=== PATIENT | female | born 1930 | race Asian ===

== ENCOUNTER 2017-04-04 23:22 | Inpatient (IN) | payer MEDICAID, MEDICARE ==
[~2017-04-04] VITALS: Ht 154.9 cm; Wt 56.7 kg
[2017-04-04 23:45] VITALS: BP 98/54
[2017-04-05 00:48] LABS: BASOPHILS % (AUTO) 0.5 % (0.0-2.0); EOSINOPHILS % (AUTO) 1.8 % (0.0-3.0); HEMATOCRIT 30.8 % (37.0-47.0); HEMOGLOBIN 10.5 G/DL (12.0-16.0); LYMPHOCYTES % (AUTO) 15.2 % (20.0-45.0); MEAN CORPUSCULAR VOLUME 96 FL (80-99); MONOCYTES % (AUTO) 14.5 % (1.0-10.0); NEUTROPHILS % (AUTO) 67.9 % (45.0-75.0); PLATELET COUNT 239 K/UL (150-450); RED BLOOD COUNT 3.21 M/UL (4.20-5.40); RED CELL DISTRIBUTION WIDTH 11.2 % (11.6-14.8); WHITE BLOOD COUNT 7.6 K/UL (4.8-10.8)
--- NOTE | 2017-04-05 01:07 | Emergency Room Report ---
History of Present Illness General Chief Complaint: Altered Level of Consciousness Source: Patient Present Illness HPI 86-year-old female, history of hypertension, chronic back pain for many years, presenting with overdose. Family states that she was recently discharged from the hospital for one week, had a lumbar fracture, stated that she states that her pain has been terrible and she took 20 pills of her Temazepam Family found her altered, sleepy Prior to this patient has still been able to ambulate on her own despite pain No other history able to be obtained Allergies: Coded Allergies: No Known Allergies (Unverified , 04/04/17) Patient History Past Medical History: see triage record Past Surgical History: none Pertinent Family History: none Last Menstrual Period: none Now: No Reviewed Nursing Documentation: PMH: Agreed, PSxH: Agreed Nursing Documentation-PMH Hx Hypertension: Yes Review of Systems All Other Systems: negative except mentioned in HPI Physical Exam Vital Signs Date Time Temp Pulse Resp B/P (MAP) Pulse Ox O2 Delivery O2 Flow Rate FiO2 04/04/17 23:05 98.1 110 18 98/54 98 Room Air Sp02 EP Interpretation: reviewed, normal General Appearance: other - Very fragile elderly woman, lethargic, however arousable and moans to pain Head: normocephalic, atraumatic Eyes: bilateral eye normal inspection, bilateral eye PERRL, bilateral eye EOMI ENT: normal ENT inspection, normal pharynx, normal voice, moist mucus membranes Neck: normal inspection, full range of motion, supple Respiratory: normal inspection, lungs clear, normal breath sounds, no respiratory distress, no retraction, no wheezing, speaking full sentences, chest symmetrical Cardiovascular #1: normal inspection, regular rate, rhythm, no edema, normal capillary refill Cardiovascular #2: 2+ radial (R), 2+ radial (L) Gastrointestinal: normal inspection, non tender, soft, non-distended, no guarding Musculoskeletal: other - full passive ROM Neurologic: other - moans to pain, otherwise not responsive Skin: normal inspection, normal color, no rash, warm/dry, well hydrated, normal turgor Medical Decision Making Diagnostic Impression: Primary Impression: Altered level of consciousness Additional Impressions: Benzodiazepine overdose Hypokalemia Hypocalcemia ER Course 78-year-old female, altered mental status, likely secondary to overdose of temazepam DDX: Overdose of temazepam Rule out other disturbances such as hypovolemia, dehydration, likely disturbance , cardiac, infectious Intracranial disease Plan: Obtain labs, ua, EKG, CXR CT head ER course: Patient has been monitored during ED stay, HD stable urine with numerous WBCs and few bacteria - tx for UTI supplemented potassium and calcium continues to be sleepy, however vital signs stable Disposition: Patient is to be admitted to telemetry D/W hospitalist Dr Hernandez Please note that this Emergency Department Report was dictated using [employer] representative technology software, occasionally this can lead to erroneous entry secondary to interpretation by the dictation equipment. EKG Diagnostic Results EP Interpretation: Yes Rate: normal Rhythm: NSR ST Segments: rbbb, PACS ASA given to patient: No Rhythm Strip EP Interpretation: Yes Rate: 81 Rhythm: NSR, no PVCs, no ectopy Chest X-ray CXR: Ordered: Yes 1 view Indication: AMS EP interpretation: Yes Interpretation: No consolidation, no effusion, no PTX, no acute cardiopulmonary disease Impression: No acute disease Electronically signed by Cait Harris MD Laboratory Tests Test 04/05/17 00:10 04/05/17 01:13 White Blood Count 7.6 K/UL (4.8-10.8) Red Blood Count 3.21 M/UL (4.20-5.40) L Hemoglobin 10.5 G/DL (12.0-16.0) L Hematocrit 30.8 % (37.0-47.0) L Mean Corpuscular Volume 96 FL (80-99) Mean Corpuscular Hemoglobin 32.8 PG (27.0-31.0) H Mean Corpuscular Hemoglobin Concent 34.2 G/DL (32.0-36.0) Red Cell Distribution Width 11.2 % (11.6-14.8) L Platelet Count 239 K/UL (150-450) Mean Platelet Volume 6.3 FL (6.5-10.1) L Neutrophils (%) (Auto) 67.9 % (45.0-75.0) Lymphocytes (%) (Auto) 15.2 % (20.0-45.0) L Monocytes (%) (Auto) 14.5 % (1.0-10.0) H Eosinophils (%) (Auto) 1.8 % (0.0-3.0) Basophils (%) (Auto) 0.5 % (0.0-2.0) Sodium Level 140 MMOL/L (136-145) Potassium Level 2.9 MMOL/L (3.5-5.1) L Chloride Level 108 MMOL/L (98-107) H Carbon Dioxide Level 26 MMOL/L (21-32) Anion Gap 6 mmol/L (5-15) Blood Urea Nitrogen 15 mg/dL (7-18) Creatinine 0.6 MG/DL (0.55-1.30) Estimate Glomerular Filtration Rate mL/min (>60) Glucose Level 92 MG/DL (74-106) Lactic Acid Level 1.00 mmol/L (0.66-2.22) Calcium Level 5.8 MG/DL (8.5-10.1) *L Total Bilirubin 0.4 MG/DL (0.2-1.0) Aspartate Amino Transferase (AST) 14 U/L (15-37) L Alanine Aminotransferase (ALT) 15 U/L (12-78) Alkaline Phosphatase 48 U/L (46-116) Total Creatine Kinase 20 U/L (26-308) L Troponin I 0.026 ng/mL (0.000-0.056) Pro-B-Type Natriuretic Peptide 126 pg/mL (0-125) H Total Protein 4.8 G/DL (6.4-8.2) L Albumin 2.2 G/DL (3.4-5.0) L Globulin 2.6 g/dL Albumin/Globulin Ratio 0.8 (1.0-2.7) L Salicylates Level < 0.2 ug/mL (2.8-20) L Acetaminophen Level 6 MCG/ML (10-30) L Serum Alcohol < 3 mg/dL Urine Color Pale yellow Urine Appearance Slightly cloudy Urine pH 7 (4.5-8.0) Urine Specific [place]ro 1.010 (1.005-1.035) Urine Protein Negative (NEGATIVE) Urine Glucose (UA) 1+ (NEGATIVE) H Urine Ketones Negative (NEGATIVE) Urine Occult Blood 1+ (NEGATIVE) H Urine Nitrite Negative (NEGATIVE) Urine Bilirubin Negative (NEGATIVE) Urine Urobilinogen Normal MG/DL (0.0-1.0) Urine Leukocyte Esterase 3+ (NEGATIVE) H Urine RBC 0-2 /HPF (0 - 2) Urine WBC Tntc /HPF (0 - 2) H Urine Squamous Epithelial Cells Many /LPF (NONE/OCC) H Urine Bacteria Few /HPF (NONE) Urine Opiates Screen Negative (NEGATIVE) Urine Barbiturates Screen Negative (NEGATIVE) Phencyclidine (PCP) Screen Negative (NEGATIVE) Urine Amphetamines Screen Negative (NEGATIVE) Urine Benzodiazepines Screen Positive (NEGATIVE) H Urine Cocaine Screen Negative (NEGATIVE) Urine Marijuana (THC) Screen Negative (NEGATIVE) Last Vital Signs Date Time Temp Pulse Resp B/P (MAP) Pulse Ox O2 Delivery O2 Flow Rate FiO2 04/04/17 23:05 98.1 110 18 98/54 98 Room Air Disposition: ADMITTED INPATIENT Condition: Serious Referrals: NON PHYSICIAN (PCP) Cait Harris M.D. Apr 05, 2017 01:07
[2017-04-05 01:16] LABS: ALANINE AMINOTRANSFERASE 15 U/L (12-78); ALBUMIN 2.2 G/DL (3.4-5.0); ALBUMIN/GLOBULIN RATIO 0.8 (1.0-2.7); ALKALINE PHOSPHATASE 48 U/L (46-116); ANION GAP 6 mmol/L (5-15); ASPARTATE AMINO TRANSFERASE 14 U/L (15-37); BILIRUBIN,TOTAL 0.4 MG/DL (0.2-1.0); BLOOD UREA NITROGEN 15 mg/dL (7-18); CARBON DIOXIDE 26 MMOL/L (21-32); CHLORIDE 108 MMOL/L (98-107); CREATINE KINASE 20 U/L (26-308); CREATININE 0.6 MG/DL (0.55-1.30); POTASSIUM 2.9 MMOL/L (3.5-5.1); SODIUM 140 MMOL/L (136-145)
[2017-04-05 01:31] LABS: CALCIUM 5.8 MG/DL (8.5-10.1)
[2017-04-05 01:45] VITALS: BP 100/67
[2017-04-05] MEDS ORDERED: Calcium Gluconate 1gm/10ml vial IVP ONE (01:45)
[2017-04-05 02:02] LABS: APPEARANCE,URINE SLIGHTLY CLOUDY; BILIRUBIN, URINE NEGATIVE (NEGATIVE); COLOR,URINE PALE YELLOW; GLUCOSE, URINE (UA) 1+ (NEGATIVE); KETONES,URINE NEGATIVE (NEGATIVE); LEUKOCYTE ESTERASE ,URINE 3+ (NEGATIVE); NITRITE,URINE NEGATIVE (NEGATIVE); PH,URINE 7 (4.5-8.0); PROTEIN,URINE NEGATIVE (NEGATIVE); UROBILINOGEN,URINE NORMAL MG/DL (0.0-1.0)
[2017-04-05] MEDS ORDERED: cefTRIAXone 1 GM in NS 55 ML IVPB ONE (02:15)
[2017-04-05] MEDS ORDERED: NS 55 ML IV ONE (02:47)
[2017-04-05 03:51] VITALS: BP 134/92
[2017-04-05 05:51] VITALS: BP 129/70
[2017-04-05 07:15] VITALS: BP 151/73
[2017-04-05 10:38] VITALS: BP 127/71
--- NOTE | 2017-04-05 11:09 | Diagnostic Imaging Report ---
Indication: Dyspnea Comparison: None A single view chest radiograph was obtained. Findings: No definite infiltrate or pulmonary vascular congestion identified. Calcifications in the lungs noted bilaterally consistent with old granulomatous disease. The heart is enlarged. The aorta is mildly enlarged consistent with atherosclerotic vascular disease. The bones are osteopenic. Impression: No acute disease
[2017-04-05] MEDS ORDERED: TEMAZEPAM15 MG ORAL (17:56)
[2017-04-05] MEDS ORDERED: METOPROLOL SUCC50 MG ORAL (17:56)
[2017-04-05] MEDS ORDERED: AMLODIPINE BESYL5 MG ORAL (17:56)
[2017-04-05] MEDS ORDERED: LORAZEPAM0.5 MG ORAL (17:58)
[2017-04-05] MEDS ORDERED: NEXIUM40 M2 ORAL (17:58)
[2017-04-05] MEDS ORDERED: RALOXIFENE HCL60 MG ORAL (17:58)
[2017-04-05] MEDS ORDERED: TRAMADOL HCL50 MG ORAL (17:58)
--- NOTE | 2017-04-05 18:41 | History & Physical ---
History and Physical History & Physicial Dictated for Int Med-Dr Hernandez no. [id number]. JOVITA DEXTER Apr 05, 2017 18:41
[2017-04-05 20:00] VITALS: BP 140/93
[2017-04-05] MEDS: Heparin 5000 units/ml inj SUBQ SCH (22:22)
[2017-04-05] MEDS: traMADol 50mg tab ORAL PRN (23:48)
[2017-04-06] VITALS: BP 123/81
[2017-04-06] MEDS: cefTRIAXone 1 GM in D5W 55 ML IVPB SCH (01:50)
--- NOTE | 2017-04-06 02:45 | History and Physical Report ---
DATE OF ADMISSION: 04/04/2017 CHIEF COMPLAINT: The patient is an 86-year-old [place] female who presents with chief complaint of altered mental status. HISTORY OF PRESENT ILLNESS: The patient has a history of chronic low back pain. The patient apparently has had increasing back pain after lumbar fracture recently. The patient was admitted to [facility] recently. The patient presented to [facility] after taking approximately 20 temazepam tablets for "pain." The patient was found to be lethargic by her family. The patient was admitted for unintentional benzodiazepine overdose. PAST MEDICAL HISTORY: Significant for: 1. Hypertension. 2. Chronic low back pain. PAST SURGICAL HISTORY: The patient denies. CURRENT MEDICATIONS: 1. Amlodipine 5 mg one tablet p.o. daily. 2. Nexium 40 mg p.o. daily. 3. Metoprolol 50 mg p.o. daily. 4. Fosamax 60 mg p.o. daily. 5. Temazepam 15 mg one tablet p.o. at bedtime. 6. Tramadol 50 mg p.o. q.6 h. p.r.n. ALLERGIES: No known drug allergies. SOCIAL HISTORY: The patient is a . The patient lives alone. The patient denies tobacco or alcohol use. REVIEW OF SYSTEMS: Unable to assess secondary to patient's mental status. PHYSICAL EXAMINATION: VITAL SIGNS: Temperature 98.1, respirations 18, pulse 110, and blood pressure 98/54. GENERAL: The patient is a well-developed and well-nourished female, in no apparent distress. HEENT: Eyes, pupils are equal and responsive to light and accommodation. Extraocular movements are intact. NECK: Supple without lymphadenopathy. CHEST: Lungs are clear to auscultation bilaterally without wheezes or rales. CARDIOVASCULAR: Regular rhythm and rate. S1 and S2 are normal without murmurs, rubs, or gallops. ABDOMEN: Soft, nontender, and nondistended. Positive bowel sounds. No evidence of hepatosplenomegaly. Currently, no rebound or guarding noted. EXTREMITIES: Negative for clubbing, cyanosis, or edema. RECTAL: Refused. GENITAL: Refused. NEUROLOGIC: Cranial nerves II to XII are grossly intact without focal deficits. LABORATORY STUDIES: WBC 7.6, hemoglobin 10.5, hematocrit 30.8, and platelets 239,000. Sodium 140, potassium 3.9, chloride 108, CO2 26, BUN 15, creatinine 0.6, and glucose 92. Troponin 0.026. Toxicology revealed positive for benzodiazepine. Urinalysis showed 3+ leukocyte esterase and WBC too numerous to count. ASSESSMENT: This is an 86-year-old female: 1. Altered mental status. 2. Benzodiazepine overdose. 3. Hypertension. 4. Chronic low back pain. 5. Urinary tract infection. TREATMENT: 1. Benzodiazepine overdose. A Psychiatry consultation was obtained with Dr. Miller. The patient is currently arousable. The patient will be admitted to the telemetry unit for close monitoring. 2. Urinary tract infection. The patient has been started empirically on Rocephin. A urine culture is pending. 3. Hypertension. Continue amlodipine as above. 4. Chronic low back pain in light of overdose. Opioids will be withheld at this point. Brian Marie M.D. DR: CLIFTON JOB#: [id number] CC:
[2017-04-06 04:00] VITALS: BP 116/81
[2017-04-06 07:28] LABS: BASOPHILS % (AUTO) 1.1 % (0.0-2.0); EOSINOPHILS % (AUTO) 1.9 % (0.0-3.0); HEMATOCRIT 35.8 % (37.0-47.0); HEMOGLOBIN 12.2 G/DL (12.0-16.0); LYMPHOCYTES % (AUTO) 11.3 % (20.0-45.0); MEAN CORPUSCULAR VOLUME 97 FL (80-99); MONOCYTES % (AUTO) 11.4 % (1.0-10.0); NEUTROPHILS % (AUTO) 74.4 % (45.0-75.0); PLATELET COUNT 285 K/UL (150-450); RED CELL DISTRIBUTION WIDTH 11.6 % (11.6-14.8)
[2017-04-06 07:41] LABS: ANION GAP 10 mmol/L (5-15); BLOOD UREA NITROGEN 15 mg/dL (7-18); CALCIUM 7.2 MG/DL (8.5-10.1); CARBON DIOXIDE 24 MMOL/L (21-32); CHLORIDE 106 MMOL/L (98-107); CREATININE 0.6 MG/DL (0.55-1.30); POTASSIUM 3.6 MMOL/L (3.5-5.1); SODIUM 140 MMOL/L (136-145)
[2017-04-06 08:00] VITALS: BP 115/73
[2017-04-06] MEDS: Heparin 5000 units/ml inj SUBQ SCH (08:09)
[2017-04-06 12:00] VITALS: BP 124/72
--- NOTE | 2017-04-06 13:25 | Internal Med Progress Note ---
Subjective Date of Service: Apr 06, 2017 Physician Name Brian Dexter Attending Physician Homar Hernandez MD Current Medications Medications (Trade) Dose Ordered Sig/Slade Route PRN Reason Start Time Stop Time Status Last Admin Dose Admin Ceftriaxone Sodium 1 gm/ Dextrose 55 ml @ 110 mls/hr Q24H IVPB 04/06/17 02:00 04/13/17 01:59 04/06/17 01:50 Dextrose (Dextrose 50%) STAT PRN IV Hypoglycemia 04/05/17 12:00 05/05/17 11:59 Heparin Sodium (Porcine) (Heparin 5000 units/ml) 5,000 units EVERY 12 HOURS SUBQ 04/05/17 21:00 05/05/17 20:59 04/06/17 08:09 Pantoprazole (Protonix) 40 mg DAILY ORAL 04/06/17 09:00 05/06/17 08:59 04/06/17 08:08 Tramadol HCl (Ultram) 50 mg Q6H PRN ORAL Moderate Pain (Pain Scale 4-6) 04/05/17 23:15 04/12/17 23:14 04/05/17 23:48 Vancomycin HCl (Vanco rx to dose) 1 ea DAILY PRN MISC Per rx protocol 04/06/17 11:30 05/06/17 11:29 UNV Vancomycin HCl 1 gm/Dextrose 275 ml @ 183.708 mls/hr ONCE ONCE IVPB 04/06/17 14:00 04/06/17 15:29 Allergies: Coded Allergies: No Known Allergies (Unverified , 04/04/17) ROS Limited/Unobtainable: Yes Subjective 86 YO F admitted with temazepam overdose-await psych consult.. Now positive blood culture-await Infectious dis consult. Cover for Int Med-Dr Hernandez Objective Last Vital Signs Date Time Temp Pulse Resp B/P (MAP) Pulse Ox O2 Delivery O2 Flow Rate FiO2 04/06/17 12:00 97.5 93 18 124/72 100 04/05/17 18:49 Room Air General Appearance: WD/WN, no apparent distress, lethargic EENT: PERRL/EOMI, normal ENT inspection, TMs normal Neck: non-tender, normal alignment, supple, normal inspection Cardiovascular: normal peripheral pulses, normal rate, regular rhythm, no gallop/murmur, no JVD Respiratory/Chest: chest wall non-tender, lungs clear, normal breath sounds, no respiratory distress, no accessory muscle use Abdomen: normal bowel sounds, non tender, soft, no organomegaly, no mass Extremities: normal range of motion, non-tender 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, no motor/sensory deficits Skin: normal pigmentation, warm/dry Laboratory Tests Test 04/06/17 05:30 White Blood Count 8.0 K/UL (4.8-10.8) Red Blood Count 3.70 M/UL (4.20-5.40) L Hemoglobin 12.2 G/DL (12.0-16.0) Hematocrit 35.8 % (37.0-47.0) L Mean Corpuscular Volume 97 FL (80-99) Mean Corpuscular Hemoglobin 33.0 PG (27.0-31.0) H Mean Corpuscular Hemoglobin Concent 34.1 G/DL (32.0-36.0) Red Cell Distribution Width 11.6 % (11.6-14.8) Platelet Count 285 K/UL (150-450) Mean Platelet Volume 6.3 FL (6.5-10.1) L Neutrophils (%) (Auto) 74.4 % (45.0-75.0) Lymphocytes (%) (Auto) 11.3 % (20.0-45.0) L Monocytes (%) (Auto) 11.4 % (1.0-10.0) H Eosinophils (%) (Auto) 1.9 % (0.0-3.0) Basophils (%) (Auto) 1.1 % (0.0-2.0) Sodium Level 140 MMOL/L (136-145) Potassium Level 3.6 MMOL/L (3.5-5.1) Chloride Level 106 MMOL/L (98-107) Carbon Dioxide Level 24 MMOL/L (21-32) Anion Gap 10 mmol/L (5-15) Blood Urea Nitrogen 15 mg/dL (7-18) Creatinine 0.6 MG/DL (0.55-1.30) Estimat Glomerular Filtration Rate mL/min (>60) Glucose Level 83 MG/DL (74-106) Calcium Level 7.2 MG/DL (8.5-10.1) #L Microbiology Date/Time Source Procedure Growth Status 04/05/17 00:15 Blood Blood Culture - Preliminary Resulted 04/04/17 22:55 Blood Blood Culture - Preliminary NO GROWTH AFTER 24 HOURS Resulted 04/05/17 01:13 Urine,Clean Catch Urine Culture - Preliminary Strep Agalactiae Group B Resulted Intake and Output 04/05/17 04/06/17 19:00 07:00 Intake Total 135 ml Balance 135 ml Intake Oral 80 ml IV Total 55 ml # Voids 2 Assessment/Plan Problem List: (1) Altered mental status (2) Hypertension (3) Chronic low back pain Assessment & Plan: Continue tramadol. (4) UTI (urinary tract infection) Assessment & Plan: Strep agalactiae group B. Cont rocephin and vanco. Await Inf Dis consult. (5) Sepsis Assessment & Plan: Gram pos cocci. Await ID and sens. Start IV vanco (6) Benzodiazepine overdose Assessment & Plan: Temazepam. Await psych consult. Status: not improved BRIAN DEXTER Apr 06, 2017 13:25
[2017-04-06] MEDS ORDERED: Vancomycin 1gm/D5W 275ml IVPB ONE ×2 (14:00)
[2017-04-06 16:00] VITALS: BP 155/94
[2017-04-06] MEDS: traMADol 50mg tab ORAL PRN (18:08)
[2017-04-06 20:00] VITALS: BP 114/76
[2017-04-07] VITALS: BP 126/80
[2017-04-07] MEDS: Heparin 5000 units/ml inj SUBQ SCH ×3 (01:19→21:00)
[2017-04-07] MEDS: cefTRIAXone 1 GM in D5W 55 ML IVPB SCH (03:39)
[2017-04-07] MEDS: traMADol 50mg tab ORAL PRN ×2 (03:41→11:52)
[2017-04-07 04:00] VITALS: BP 152/115
[2017-04-07 05:00] VITALS: BP 126/52
[2017-04-07 07:32] LABS: ANION GAP 7 mmol/L (5-15); BLOOD UREA NITROGEN 16 mg/dL (7-18); CALCIUM 7.5 MG/DL (8.5-10.1); CARBON DIOXIDE 26 MMOL/L (21-32); CHLORIDE 102 MMOL/L (98-107); CREATININE 0.7 MG/DL (0.55-1.30); POTASSIUM 3.6 MMOL/L (3.5-5.1); SODIUM 135 MMOL/L (136-145)
[2017-04-07 07:33] LABS: BASOPHILS % (AUTO) 0.8 % (0.0-2.0); EOSINOPHILS % (AUTO) 0.4 % (0.0-3.0); HEMATOCRIT 39.4 % (37.0-47.0); HEMOGLOBIN 13.5 G/DL (12.0-16.0); MEAN CORPUSCULAR VOLUME 95 FL (80-99); MONOCYTES % (AUTO) 11.1 % (1.0-10.0); NEUTROPHILS % (AUTO) 79.7 % (45.0-75.0); PLATELET COUNT 278 K/UL (150-450); RED BLOOD COUNT 4.13 M/UL (4.20-5.40); RED CELL DISTRIBUTION WIDTH 11.6 % (11.6-14.8); WHITE BLOOD COUNT 7.8 K/UL (4.8-10.8)
--- NOTE | 2017-04-07 11:51 | Internal Med Progress Note ---
Subjective Date of Service: Apr 07, 2017 Physician Name Brian Dexter Attending Physician Homar Hernandez MD Current Medications Medications (Trade) Dose Ordered Sig/Slade Route PRN Reason Start Time Stop Time Status Last Admin Dose Admin Ceftriaxone Sodium 1 gm/ Dextrose 55 ml @ 110 mls/hr Q24H IVPB 04/06/17 02:00 04/13/17 01:59 04/07/17 03:39 Dextrose (Dextrose 50%) STAT PRN IV Hypoglycemia 04/05/17 12:00 05/05/17 11:59 Heparin Sodium (Porcine) (Heparin 5000 units/ml) 5,000 units EVERY 12 HOURS SUBQ 04/05/17 21:00 05/05/17 20:59 04/07/17 09:30 Pantoprazole (Protonix) 40 mg DAILY ORAL 04/06/17 09:00 05/06/17 08:59 04/07/17 09:28 Tramadol HCl (Ultram) 50 mg Q6H PRN ORAL Moderate Pain (Pain Scale 4-6) 04/05/17 23:15 04/12/17 23:14 04/07/17 03:41 Vancomycin HCl (Vanco rx to dose) 1 ea DAILY PRN MISC Per rx protocol 04/06/17 11:30 05/06/17 11:29 Vancomycin HCl 1 gm/Dextrose 275 ml @ 183.708 mls/hr Q24H IVPB 04/07/17 14:00 04/12/17 13:59 Allergies: Coded Allergies: No Known Allergies (Unverified , 04/04/17) ROS Limited/Unobtainable: No Constitutional: Reports: no symptoms HEENT: Reports: no symptoms Cardiovascular: Reports: no symptoms Respiratory: Reports: no symptoms Gastrointestinal/Abdominal: Reports: no symptoms Genitourinary: Reports: no symptoms Neurologic/Psychiatric: Reports: no symptoms Subjective 86 YO F admitted with temazepam overdose-await psych consult.. Now positive blood culture-await Infectious dis consult. Still confused. Cover for Int Med- Dr Hernandez Objective Last Vital Signs Date Time Temp Pulse Resp B/P (MAP) Pulse Ox O2 Delivery O2 Flow Rate FiO2 04/07/17 08:00 101 04/07/17 05:00 126/52 04/07/17 04:00 97.1 14 95 04/07/17 00:00 Room Air Laboratory Tests Test 04/07/17 05:05 White Blood Count 7.8 K/UL (4.8-10.8) Red Blood Count 4.13 M/UL (4.20-5.40) L Hemoglobin 13.5 G/DL (12.0-16.0) Hematocrit 39.4 % (37.0-47.0) Mean Corpuscular Volume 95 FL (80-99) Mean Corpuscular Hemoglobin 32.7 PG (27.0-31.0) H Mean Corpuscular Hemoglobin Concent 34.3 G/DL (32.0-36.0) Red Cell Distribution Width 11.6 % (11.6-14.8) Platelet Count 278 K/UL (150-450) Mean Platelet Volume 5.8 FL (6.5-10.1) L Neutrophils (%) (Auto) 79.7 % (45.0-75.0) H Lymphocytes (%) (Auto) 8.0 % (20.0-45.0) L Monocytes (%) (Auto) 11.1 % (1.0-10.0) H Eosinophils (%) (Auto) 0.4 % (0.0-3.0) Basophils (%) (Auto) 0.8 % (0.0-2.0) Sodium Level 135 MMOL/L (136-145) L Potassium Level 3.6 MMOL/L (3.5-5.1) Chloride Level 102 MMOL/L (98-107) Carbon Dioxide Level 26 MMOL/L (21-32) Anion Gap 7 mmol/L (5-15) Blood Urea Nitrogen 16 mg/dL (7-18) Creatinine 0.7 MG/DL (0.55-1.30) Estimat Glomerular Filtration Rate mL/min (>60) Glucose Level 126 MG/DL (74-106) H Calcium Level 7.5 MG/DL (8.5-10.1) L Microbiology Date/Time Source Procedure Growth Status 04/05/17 00:15 Blood Blood Culture - Preliminary Staphylococcus Species Resulted 04/04/17 22:55 Blood Blood Culture - Preliminary NO GROWTH AFTER 48 HOURS Resulted 04/05/17 11:40 Nasal Nares MRSA Culture - Final NO METHICILLIN RESISTANT STAPH AUREUS... Complete 04/05/17 01:13 Urine,Clean Catch Urine Culture - Final Strep Agalactiae Group B Complete 04/05/17 11:40 Rectum VRE Culture - Final NO VANCOMYCIN RESISTANT ENTEROCOCCUS ... Complete Intake and Output 04/06/17 04/07/17 19:00 07:00 Intake Total 480 ml Balance 480 ml Intake Oral 480 ml # Voids 1 Objective General Appearance: WD/WN, no apparent distress, lethargic EENT: PERRL/EOMI, normal ENT inspection, TMs normal Neck: non-tender, normal alignment, supple, normal inspection Cardiovascular: normal peripheral pulses, normal rate, regular rhythm, no gallop/murmur, no JVD Respiratory/Chest: chest wall non-tender, lungs clear, normal breath sounds, no respiratory distress, no accessory muscle use Abdomen: normal bowel sounds, non tender, soft, no organomegaly, no mass Extremities: normal range of motion, non-tender Neurologic: expansion 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 (4) UTI (urinary tract infection) Assessment & Plan: Strep agalactiae group B. Cont rocephin and vanco. Await Inf Dis consult. (5) Sepsis Assessment & Plan: Gram pos cocci. Await ID and sens. Start IV vanco (6) Benzodiazepine overdose Assessment & Plan: Temazepam. Await psych consult. Status: not improved BRIAN DEXTER Apr 07, 2017 11:50
[2017-04-07] MEDS ORDERED: Vancomycin 1gm/D5W 275ml IVPB SCH ×2 (14:00)
--- NOTE | 2017-04-07 15:47 | Consultation ---
History of Present Illness General Date patient seen: Apr 07, 2017 Chief Complaint: Altered Level of Consciousness Present Illness HPI 86 y/o F with hx of Chronic low back apin, GERD, Osteoporosis HTN presents to ED on 04/05 with AMS and increasing back pain. OF note patient recently admitted to [facility] with lumbar fracture. Prior to admission here apparently patient took about 20 temazepam tablets for pain and patient found lethargic by family; it was though was an unintentional overdose. . ID Is consulted for 1/ GPC bacteremia.. Patient afebrile, no leukocytosis. Started on IV Vanco and ceftriaxone for pyuria Allergies: Coded Allergies: No Known Allergies (Unverified , 04/04/17) Medication History Scheduled Amlodipine Besylate* (Amlodipine Besylate*), 5 MG ORAL DAILY, (Reported) Esomeprazole Magnesium (Nexium), 40 MG ORAL DAILY, (Reported) Metoprolol Succinate* (Metoprolol Succinate*), 50 MG ORAL DAILY, (Reported) Raloxifene HCl (Raloxifene HCl), 60 MG ORAL DAILY, (Reported) Temazepam (Temazepam*), 15 MG ORAL BEDTIME, (Reported) Scheduled PRN Lorazepam* (Lorazepam*), 0.5 MG ORAL EVERY 8 HOURS PRN for For Anxiety, ( Reported) Tramadol Hcl* (Ultram*), 50 MG ORAL DAILY PRN for Pain Scale (3-5), (Reported) Patient History Healthcare decision maker Clayton Quintana Resuscitation status Full Code Advanced Directive on File No Patient History Narrative PMhx: as above: SHx: The patient is a . The patient lives alone. The patient denies tobacco or alcohol use. Fhx: non contributory Review of Systems ROS Narrative unable to obtain Physical Exam Physical Exam Narrative GENERAL: The patient is a well-developed and well-nourished female, in no apparent distress. HEENT: Eyes, pupils are equal and responsive to light and accommodation. Extraocular movements are intact. NECK: Supple without lymphadenopathy. CHEST: Lungs are clear to auscultation bilaterally without wheezes or rales. CARDIOVASCULAR: Regular rhythm and rate. S1 and S2 are normal without murmurs, rubs, or gallops. ABDOMEN: Soft, nontender, and nondistended. Positive bowel sounds. No evidence of hepatosplenomegaly. Currently, no rebound or guarding noted. EXTREMITIES: Negative for clubbing, cyanosis, or edema. RECTAL: Refused. GENITAL: Refused. NEUROLOGIC: Cranial nerves II to XII are grossly intact without focal deficits. Last 24 Hour Vital Signs Date Time Temp Pulse Resp B/P (MAP) Pulse Ox O2 Delivery O2 Flow Rate FiO2 04/07/17 12:51 97.1 04/07/17 12:00 112 04/07/17 08:00 101 04/07/17 05:00 98 126/52 04/07/17 04:00 97.1 131 14 152/115 95 04/07/17 04:00 134 04/07/17 00:00 97.9 111 14 126/80 95 Room Air 04/07/17 00:00 126 04/06/17 20:00 113 04/06/17 20:00 97.9 110 14 114/76 95 04/06/17 16:00 91 04/06/17 16:00 97.7 117 18 155/94 96 Room Air Intake and Output 04/06/17 04/07/17 19:00 07:00 Intake Total 480 ml Balance 480 ml Intake Oral 480 ml # Voids 1 Laboratory Tests Test 04/07/17 05:05 White Blood Count 7.8 K/UL (4.8-10.8) Red Blood Count 4.13 M/UL (4.20-5.40) L Hemoglobin 13.5 G/DL (12.0-16.0) Hematocrit 39.4 % (37.0-47.0) Mean Corpuscular Volume 95 FL (80-99) Mean Corpuscular Hemoglobin 32.7 PG (27.0-31.0) H Mean Corpuscular Hemoglobin Concent 34.3 G/DL (32.0-36.0) Red Cell Distribution Width 11.6 % (11.6-14.8) Platelet Count 278 K/UL (150-450) Mean Platelet Volume 5.8 FL (6.5-10.1) L Neutrophils (%) (Auto) 79.7 % (45.0-75.0) H Lymphocytes (%) (Auto) 8.0 % (20.0-45.0) L Monocytes (%) (Auto) 11.1 % (1.0-10.0) H Eosinophils (%) (Auto) 0.4 % (0.0-3.0) Basophils (%) (Auto) 0.8 % (0.0-2.0) Sodium Level 135 MMOL/L (136-145) L Potassium Level 3.6 MMOL/L (3.5-5.1) Chloride Level 102 MMOL/L (98-107) Carbon Dioxide Level 26 MMOL/L (21-32) Anion Gap 7 mmol/L (5-15) Blood Urea Nitrogen 16 mg/dL (7-18) Creatinine 0.7 MG/DL (0.55-1.30) Estimat Glomerular Filtration Rate mL/min (>60) Glucose Level 126 MG/DL (74-106) H Calcium Level 7.5 MG/DL (8.5-10.1) L Height (Feet): 5 Height (Inches): 1.00 Weight (Pounds): 125 Medications Current Medications Medications (Trade) Dose Ordered Sig/Slade Route PRN Reason Start Time Stop Time Status Last Admin Dose Admin Ceftriaxone Sodium 1 gm/ Dextrose 55 ml @ 110 mls/hr Q24H IVPB 04/06/17 02:00 04/13/17 01:59 04/07/17 03:39 Dextrose (Dextrose 50%) STAT PRN IV Hypoglycemia 04/05/17 12:00 05/05/17 11:59 Escitalopram Oxalate (Lexapro) 10 mg DAILY ORAL 04/08/17 09:00 05/08/17 08:59 Heparin Sodium (Porcine) (Heparin 5000 units/ml) 5,000 units EVERY 12 HOURS SUBQ 04/05/17 21:00 05/05/17 20:59 04/07/17 09:30 Mirtazapine (Remeron) 7.5 mg BEDTIME ORAL 04/07/17 21:00 05/07/17 20:59 Pantoprazole (Protonix) 40 mg DAILY ORAL 04/06/17 09:00 05/06/17 08:59 04/07/17 09:28 Tramadol HCl (Ultram) 50 mg Q6H PRN ORAL Moderate Pain (Pain Scale 4-6) 04/05/17 23:15 04/12/17 23:14 04/07/17 11:52 Vancomycin HCl (Vanco rx to dose) 1 ea DAILY PRN MISC Per rx protocol 04/06/17 11:30 05/06/17 11:29 Vancomycin HCl 1 gm/Dextrose 275 ml @ 183.708 mls/hr Q24H IVPB 04/07/17 14:00 04/12/17 13:59 04/07/17 13:48 Assessment/Plan Assessment/Plan Assessment: Unintention temazepam overdose 04/11 Gram positive bacteremia- suspect contaminant Bcx 04/05 04/11 Staph sp; Bcx 04/06 P -CXR: no acute disease Afebrile, no leukocytosis Pyuria, ?UTI -u/a TNTC, nit neg, leuk +3; Ucx 30-40 K Group B strep Recent lumbar spine fracture Chronic low back pain, GERD, Osteoporosis HTN Plan: -Continue IV Vanco for now peding ID staph and repeat Bcx -Continue ceftriaxone for now until more awake to asses UTI symptoms; GBS is considered normal js in women. -f/u cx -MOnitor CBC/CMP, temperatures Thank you for this consultation. Will continue to follow along with you. Discussed with Dali Whitfield M.D. Apr 07, 2017 15:47
--- NOTE | 2017-04-08 | Consultation ---
DATE OF CONSULTATION: 04/07/2017 UROLOGY CONSULTATION CONSULTING PHYSICIAN: Brock Olvera M.D. ATTENDING/CONSULTING PHYSICIAN: Brian Marie M.D. CHIEF COMPLAINT/HISTORY OF PRESENT ILLNESS: I was asked by Dr. Marie to evaluate this 86-year-old, Faroese female regarding history of urinary retention and inability of staff to pass a Hewitt catheter. Briefly, the patient is an elderly Faroese female, who presented with altered mental status. She has had increasing back pain as well lately. She took approximately 20 temazepam tablets for pain and was found to be lethargic by her family. She was admitted for unintentional benzodiazepine overdose. She was noted to have urinary retention and as such an attempt to place Hewitt catheter was done, but was met with resistance and inability to pass the catheter. As such, I was asked to evaluate the patient. History taking was limited by the language barrier, but the patient does not appear to have a history of urologic issues or problems. PAST MEDICAL HISTORY: 1. Hypertension. 2. Chronic low back pain. PAST SURGICAL HISTORY: None. MEDICATIONS: Please see chart for current medication administration details. ALLERGIES: No known drug allergies. SOCIAL HISTORY: The patient does not use tobacco, alcohol, or drugs. She is a and lives alone. FAMILY HISTORY: Noncontributory. REVIEW OF SYSTEMS: A 12-system review of systems could not really be done as the patient cannot cooperate much with questioning. PHYSICAL EXAMINATION: GENERAL: The patient is an elderly Faroese female, awake, alert, seems oriented. No obvious distress. HEENT: NC/AT. EOMI. Oropharynx clear. NECK: Supple. Full range of motion. CHEST: Within normal limits. ABDOMEN: Soft, nontender, and nondistended except suprapubically where there was some distention. BACK: No CVA tenderness to percussion. GENITOURINARY: Atrophic female genitalia consistent with the patient's age. EXTREMITIES: Warm and well perfused. No cyanosis, clubbing, or edema. NEUROLOGIC: Grossly nonfocal. LABORATORY DATA: White blood cell count 7.8, hematocrit 39.4, and platelets 278,000. Urinalysis, specific gravity 1.010 and pH 7.0. Dip test notable for 1+ glucose, 1+ occult blood, and 3+ leukocyte esterase. Microanalysis with too numerous to count white blood cells per high-power field and few bacteria seen. Sodium 135, potassium 3.6, chloride 102, bicarbonate 26, BUN 16, creatinine 0.7, glucose 126, and calcium 7.5. Urine toxicology notable for benzodiazepines only. DIAGNOSTIC IMAGING: Chest x-ray with no acute disease. Bladder ultrasound with over 600 mL in the patient's bladder. ASSESSMENT AND PLAN: In summary, the patient is an 86-year-old female with history of back pain, who overdosed unintentionally on benzodiazepines. She was brought to the hospital with altered mental status. She was found to have urinary retention and staff could not pass the catheter. Physical exam reveals atrophic female genitalia with some edema of the urethral meatus. Laboratory data is essentially unremarkable. Diagnostic imaging is notable for urinary retention. Today, at the bedside, I attempted to pass a 16-Dominican Hewitt catheter into the patient's bladder, but met resistance in the mid urethra. Unusually, the patient appeared to have urethral stricture of uncertain etiology. Despite multiple attempts, the catheter could not be placed. Therefore, decision was made to dilate the urethra and stricture. Using a set of sounds, I progressively dilated her from 12 to 22-Dominican with entry into the bladder with no complications. Afterwards, I was able to pass a 16-Dominican Hewitt catheter into the patient's bladder and it returned clear yellow urine output. It was inflated and left to gravity drainage. It can be kept in place as needed. Once the patient is stabilized and improved, it can be removed from her and she can be sent home without it. Office followup will be arranged in my office. Thank you for allowing me to participate in the care of this nice lady. Please do not hesitate to contact me with any questions that you may further have regarding her care. I will be happy to see her with you. Brock Olvera M.D. DR: Rodrigo JOB#: [id number] CC:
[2017-04-08] MEDS: cefTRIAXone 1 GM in D5W 55 ML IVPB SCH (03:18)
[2017-04-08 07:28] LABS: BASOPHILS % (AUTO) 1.5 % (0.0-2.0); EOSINOPHILS % (AUTO) 1.8 % (0.0-3.0); HEMATOCRIT 35.1 % (37.0-47.0); HEMOGLOBIN 11.9 G/DL (12.0-16.0); LYMPHOCYTES % (AUTO) 9.8 % (20.0-45.0); MEAN CORPUSCULAR VOLUME 94 FL (80-99); MONOCYTES % (AUTO) 15.5 % (1.0-10.0); NEUTROPHILS % (AUTO) 71.5 % (45.0-75.0); PLATELET COUNT 268 K/UL (150-450); RED BLOOD COUNT 3.72 M/UL (4.20-5.40); RED CELL DISTRIBUTION WIDTH 11.6 % (11.6-14.8); WHITE BLOOD COUNT 5.4 K/UL (4.8-10.8)
[2017-04-08 07:45] LABS: ANION GAP 8 mmol/L (5-15); BLOOD UREA NITROGEN 10 mg/dL (7-18); CARBON DIOXIDE 28 MMOL/L (21-32); CHLORIDE 101 MMOL/L (98-107); CREATININE 0.6 MG/DL (0.55-1.30); POTASSIUM 2.8 MMOL/L (3.5-5.1); SODIUM 137 MMOL/L (136-145)
[2017-04-08 08:00] VITALS: BP 130/75
[2017-04-08] MEDS: Heparin 5000 units/ml inj SUBQ SCH ×2 (10:55→21:36)
--- NOTE | 2017-04-08 11:00 | Infectious Diseases Prog Note ---
Assessment/Plan Assessment/Plan Abx: Ceftriaxone 04/06- IV Vanco 04/06-- Assessment: Unintention temazepam overdose 04/11 CoNS bacteremia- likely contaminant Bcx 04/05 04/11 Staph sp; Bcx 04/06 NTD -CXR: no acute disease Afebrile, no leukocytosis Pyuria, ?UTI -u/a TNTC, nit neg, leuk +3; Ucx 30-40 K Group B strep Recent lumbar spine fracture Chronic low back pain, GERD, Osteoporosis HTN Plan: -D/c IV Vanco #3 -Continue ceftriaxone #3 for now until more awake to asses UTI symptoms; GBS is considered normal js in women. -f/u cx -MOnitor CBC/CMP, temperatures Thank you for this consultation. Will continue to follow along with you. Discussed with RN. Subjective Allergies: Coded Allergies: No Known Allergies (Unverified , 04/04/17) Subjective afebrile no leukocytosis repeat BCx NTD Objective Vital Signs Last 24 Hour Vital Signs Date Time Temp Pulse Resp B/P (MAP) Pulse Ox O2 Delivery O2 Flow Rate FiO2 04/08/17 04:00 97 04/08/17 00:00 116 04/07/17 20:00 103 04/07/17 16:00 109 04/07/17 12:51 97.1 04/07/17 12:00 112 Height (Feet): 5 Height (Inches): 1.00 Weight (Pounds): 125 Objective GENERAL: The patient is a well-developed and well-nourished female, in no apparent distress. HEENT: Eyes, pupils are equal and responsive to light and accommodation.Extraocular movements are intact. NECK: Supple without lymphadenopathy. CHEST: Lungs are clear to auscultation bilaterally without wheezes or rales. CARDIOVASCULAR: Regular rhythm and rate. S1 and S2 are normal without murmurs , rubs, or gallops. ABDOMEN: Soft, nontender, and nondistended. Positive bowel sounds. No evidence of hepatosplenomegaly. Currently, no rebound or guarding noted. EXTREMITIES: Negative for clubbing, cyanosis, or edema. Microbiology Date/Time Source Procedure Growth Status 04/06/17 16:58 Blood Blood Culture - Preliminary NO GROWTH AFTER 24 HOURS Resulted 04/06/17 16:50 Blood Blood Culture - Preliminary NO GROWTH AFTER 24 HOURS Resulted 04/05/17 11:40 Nasal Nares MRSA Culture - Final NO METHICILLIN RESISTANT STAPH AUREUS... Complete 04/05/17 11:40 Rectum VRE Culture - Final NO VANCOMYCIN RESISTANT ENTEROCOCCUS ... Complete Laboratory Tests Test 04/08/17 05:50 White Blood Count 5.4 K/UL (4.8-10.8) Red Blood Count 3.72 M/UL (4.20-5.40) L Hemoglobin 11.9 G/DL (12.0-16.0) L Hematocrit 35.1 % (37.0-47.0) L Mean Corpuscular Volume 94 FL (80-99) Mean Corpuscular Hemoglobin 32.1 PG (27.0-31.0) H Mean Corpuscular Hemoglobin Concent 34.0 G/DL (32.0-36.0) Red Cell Distribution Width 11.6 % (11.6-14.8) Platelet Count 268 K/UL (150-450) Mean Platelet Volume 5.7 FL (6.5-10.1) L Neutrophils (%) (Auto) 71.5 % (45.0-75.0) Lymphocytes (%) (Auto) 9.8 % (20.0-45.0) L Monocytes (%) (Auto) 15.5 % (1.0-10.0) H Eosinophils (%) (Auto) 1.8 % (0.0-3.0) Basophils (%) (Auto) 1.5 % (0.0-2.0) Sodium Level 137 MMOL/L (136-145) Potassium Level 2.8 MMOL/L (3.5-5.1) L Chloride Level 101 MMOL/L (98-107) Carbon Dioxide Level 28 MMOL/L (21-32) Anion Gap 8 mmol/L (5-15) Blood Urea Nitrogen 10 mg/dL (7-18) Creatinine 0.6 MG/DL (0.55-1.30) Estimat Glomerular Filtration Rate mL/min (>60) Glucose Level 97 MG/DL (74-106) Calcium Level 7.0 MG/DL (8.5-10.1) L Current Medications Medications (Trade) Dose Ordered Sig/Slade Route PRN Reason Start Time Stop Time Status Last Admin Dose Admin Ceftriaxone Sodium 1 gm/ Dextrose 55 ml @ 110 mls/hr Q24H IVPB 04/06/17 02:00 04/13/17 01:59 04/08/17 03:18 Dextrose (Dextrose 50%) STAT PRN IV Hypoglycemia 04/05/17 12:00 05/05/17 11:59 Escitalopram Oxalate (Lexapro) 10 mg DAILY ORAL 04/08/17 09:00 05/08/17 08:59 Heparin Sodium (Porcine) (Heparin 5000 units/ml) 5,000 units EVERY 12 HOURS SUBQ 04/05/17 21:00 05/05/17 20:59 04/07/17 09:30 Mirtazapine (Remeron) 7.5 mg BEDTIME ORAL 04/07/17 21:00 05/07/17 20:59 04/07/17 21:31 Pantoprazole (Protonix) 40 mg DAILY ORAL 04/06/17 09:00 05/06/17 08:59 04/07/17 09:28 Tramadol HCl (Ultram) 50 mg Q6H PRN ORAL Moderate Pain (Pain Scale 4-6) 04/05/17 23:15 04/12/17 23:14 04/07/17 11:52 Vancomycin HCl (Vanco rx to dose) 1 ea DAILY PRN MISC Per rx protocol 04/06/17 11:30 05/06/17 11:29 Vancomycin HCl 1 gm/Dextrose 275 ml @ 183.708 mls/hr Q24H IVPB 04/07/17 14:00 04/12/17 13:59 04/07/17 13:48 Dali Alcantar M.D. Apr 08, 2017 11:00
[2017-04-08 12:00] VITALS: BP 127/74
--- NOTE | 2017-04-08 12:04 | Internal Med Progress Note ---
Subjective Date of Service: Apr 08, 2017 Physician Name Brian Dexter Attending Physician Homar Hernandez MD Current Medications Medications (Trade) Dose Ordered Sig/Slade Route PRN Reason Start Time Stop Time Status Last Admin Dose Admin Ceftriaxone Sodium 1 gm/ Dextrose 55 ml @ 110 mls/hr Q24H IVPB 04/06/17 02:00 04/13/17 01:59 04/08/17 03:18 Dextrose (Dextrose 50%) STAT PRN IV Hypoglycemia 04/05/17 12:00 05/05/17 11:59 Escitalopram Oxalate (Lexapro) 10 mg DAILY ORAL 04/08/17 09:00 05/08/17 08:59 04/08/17 10:54 Heparin Sodium (Porcine) (Heparin 5000 units/ml) 5,000 units EVERY 12 HOURS SUBQ 04/05/17 21:00 05/05/17 20:59 04/08/17 10:55 Mirtazapine (Remeron) 7.5 mg BEDTIME ORAL 04/07/17 21:00 05/07/17 20:59 04/07/17 21:31 Pantoprazole (Protonix) 40 mg DAILY ORAL 04/06/17 09:00 05/06/17 08:59 04/08/17 10:54 Tramadol HCl (Ultram) 50 mg Q6H PRN ORAL Moderate Pain (Pain Scale 4-6) 04/05/17 23:15 04/12/17 23:14 04/07/17 11:52 Allergies: Coded Allergies: No Known Allergies (Unverified , 04/04/17) ROS Limited/Unobtainable: No Constitutional: Reports: no symptoms HEENT: Reports: no symptoms Cardiovascular: Reports: no symptoms Respiratory: Reports: no symptoms Gastrointestinal/Abdominal: Reports: no symptoms Genitourinary: Reports: no symptoms Neurologic/Psychiatric: Reports: no symptoms Subjective 86 YO F admitted with temazepam overdose-await psych consult.. Now positive blood culture-await Infectious dis consult. Still confused. Cover for Int Med- Dr Hernandez. Await transfer to detention fac. Objective Last Vital Signs Date Time Temp Pulse Resp B/P (MAP) Pulse Ox O2 Delivery O2 Flow Rate FiO2 04/08/17 04:00 97 04/07/17 12:51 97.1 04/07/17 05:00 126/52 04/07/17 04:00 14 95 04/07/17 00:00 Room Air Laboratory Tests Test 04/08/17 05:50 White Blood Count 5.4 K/UL (4.8-10.8) Red Blood Count 3.72 M/UL (4.20-5.40) L Hemoglobin 11.9 G/DL (12.0-16.0) L Hematocrit 35.1 % (37.0-47.0) L Mean Corpuscular Volume 94 FL (80-99) Mean Corpuscular Hemoglobin 32.1 PG (27.0-31.0) H Mean Corpuscular Hemoglobin Concent 34.0 G/DL (32.0-36.0) Red Cell Distribution Width 11.6 % (11.6-14.8) Platelet Count 268 K/UL (150-450) Mean Platelet Volume 5.7 FL (6.5-10.1) L Neutrophils (%) (Auto) 71.5 % (45.0-75.0) Lymphocytes (%) (Auto) 9.8 % (20.0-45.0) L Monocytes (%) (Auto) 15.5 % (1.0-10.0) H Eosinophils (%) (Auto) 1.8 % (0.0-3.0) Basophils (%) (Auto) 1.5 % (0.0-2.0) Sodium Level 137 MMOL/L (136-145) Potassium Level 2.8 MMOL/L (3.5-5.1) L Chloride Level 101 MMOL/L (98-107) Carbon Dioxide Level 28 MMOL/L (21-32) Anion Gap 8 mmol/L (5-15) Blood Urea Nitrogen 10 mg/dL (7-18) Creatinine 0.6 MG/DL (0.55-1.30) Estimat Glomerular Filtration Rate mL/min (>60) Glucose Level 97 MG/DL (74-106) Calcium Level 7.0 MG/DL (8.5-10.1) L Microbiology Date/Time Source Procedure Growth Status 04/06/17 16:58 Blood Blood Culture - Preliminary NO GROWTH AFTER 24 HOURS Resulted 04/06/17 16:50 Blood Blood Culture - Preliminary NO GROWTH AFTER 24 HOURS Resulted Intake and Output 04/07/17 04/08/17 19:00 07:00 Intake Total 360 ml Output Total 1400 ml 800 ml Balance -1040 ml -800 ml Intake Oral 360 ml Output Urine Total 1400 ml 800 ml # Voids 1 # Bowel Movements 1 Objective General Appearance: WD/WN, no apparent distress, lethargic EENT: PERRL/EOMI, normal ENT inspection, TMs normal Neck: non-tender, normal alignment, supple, normal inspection Cardiovascular: normal peripheral pulses, normal rate, regular rhythm, no gallop/murmur, no JVD Respiratory/Chest: chest wall non-tender, lungs clear, normal breath sounds, no respiratory distress, no accessory muscle use Abdomen: normal bowel sounds, non tender, soft, no organomegaly, no mass Extremities: normal range of motion, non-tender 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 (4) UTI (urinary tract infection) Assessment & Plan: Strep agalactiae group B. Cont rocephin and vanco. Await Inf Dis consult. (5) Sepsis Assessment & Plan: Gram pos cocci. Await ID and sens. Start IV vanco (6) Benzodiazepine overdose Assessment & Plan: Temazepam. Await psych consult. Status: progressing BRIAN DEXTER Apr 08, 2017 12:04
[2017-04-08] MEDS ORDERED: D5W 275ml ONE (14:48)
[2017-04-08] MEDS ORDERED: Tubing IV Secondary IV ONE (14:48)
[2017-04-08] MEDS ORDERED: NS 275ml ONE (14:48)
[2017-04-08 16:00] VITALS: BP 107/73
--- NOTE | 2017-04-08 23:03 | Consultation ---
History of Present Illness General Date patient seen: Apr 06, 2017 Chief Complaint: Altered Level of Consciousness Present Illness HPI 86-year-old, Portuguese female regarding history of urinary retention and anxiety. the patient presented with altered mental status. She took approximately 20 temazepam tablets for pain and was found to be lethargic by her family. the pt stated that she took the meds for pain. the pt appears to be depressed and when I asked about suicide the pt started to cry and did not respond. the pt stated that she was lonely and has low energy. denied depressive sxs however she is depressed Allergies: Coded Allergies: No Known Allergies (Unverified , 04/04/17) Medication History Scheduled Amlodipine Besylate* (Amlodipine Besylate*), 5 MG ORAL DAILY, (Reported) Esomeprazole Magnesium (Nexium), 40 MG ORAL DAILY, (Reported) Metoprolol Succinate* (Metoprolol Succinate*), 50 MG ORAL DAILY, (Reported) Raloxifene HCl (Raloxifene HCl), 60 MG ORAL DAILY, (Reported) Temazepam (Temazepam*), 15 MG ORAL BEDTIME, (Reported) Scheduled PRN Lorazepam* (Lorazepam*), 0.5 MG ORAL EVERY 8 HOURS PRN for For Anxiety, ( Reported) Tramadol Hcl* (Ultram*), 50 MG ORAL DAILY PRN for Pain Scale (3-5), (Reported) Patient History Limited by: medical condition History Provided By: Patient, Medical Record, PMD Healthcare decision maker Clayton Quintana Resuscitation status Full Code Advanced Directive on File No Past Medical/Surgical History Past Medical/Surgical History: (1) Hypokalemia (2) Hypocalcemia (3) Altered level of consciousness (4) Sepsis (5) UTI (urinary tract infection) (6) Altered mental status (7) Hypertension (8) Chronic low back pain (9) Benzodiazepine overdose Review of Systems Psychiatric: Reports: prior hx, anxiety, depressed feelings Physical Exam General Appearance: no apparent distress, alert Neurologic: alert, oriented x 3, responsive, depressed affect Last 24 Hour Vital Signs Date Time Temp Pulse Resp B/P (MAP) Pulse Ox O2 Delivery O2 Flow Rate FiO2 04/08/17 16:00 103 04/08/17 16:00 98.2 107 20 107/73 92 Room Air 04/08/17 12:00 109 04/08/17 12:00 98.0 99 18 127/74 95 Room Air 04/08/17 08:00 97.9 109 20 130/75 94 Room Air 04/08/17 08:00 115 04/08/17 04:00 97 04/08/17 00:00 116 Intake and Output 04/07/17 04/08/17 19:00 07:00 Intake Total 360 ml Output Total 1400 ml 800 ml Balance -1040 ml -800 ml Intake Oral 360 ml Output Urine Total 1400 ml 800 ml # Voids 1 # Bowel Movements 1 Laboratory Tests Test 04/08/17 05:50 White Blood Count 5.4 K/UL (4.8-10.8) Red Blood Count 3.72 M/UL (4.20-5.40) L Hemoglobin 11.9 G/DL (12.0-16.0) L Hematocrit 35.1 % (37.0-47.0) L Mean Corpuscular Volume 94 FL (80-99) Mean Corpuscular Hemoglobin 32.1 PG (27.0-31.0) H Mean Corpuscular Hemoglobin Concent 34.0 G/DL (32.0-36.0) Red Cell Distribution Width 11.6 % (11.6-14.8) Platelet Count 268 K/UL (150-450) Mean Platelet Volume 5.7 FL (6.5-10.1) L Neutrophils (%) (Auto) 71.5 % (45.0-75.0) Lymphocytes (%) (Auto) 9.8 % (20.0-45.0) L Monocytes (%) (Auto) 15.5 % (1.0-10.0) H Eosinophils (%) (Auto) 1.8 % (0.0-3.0) Basophils (%) (Auto) 1.5 % (0.0-2.0) Sodium Level 137 MMOL/L (136-145) Potassium Level 2.8 MMOL/L (3.5-5.1) L Chloride Level 101 MMOL/L (98-107) Carbon Dioxide Level 28 MMOL/L (21-32) Anion Gap 8 mmol/L (5-15) Blood Urea Nitrogen 10 mg/dL (7-18) Creatinine 0.6 MG/DL (0.55-1.30) Estimat Glomerular Filtration Rate mL/min (>60) Glucose Level 97 MG/DL (74-106) Calcium Level 7.0 MG/DL (8.5-10.1) L Height (Feet): 5 Height (Inches): 1.00 Weight (Pounds): 125 Medications Current Medications Medications (Trade) Dose Ordered Sig/Slade Route PRN Reason Start Time Stop Time Status Last Admin Dose Admin Ceftriaxone Sodium 1 gm/ Dextrose 55 ml @ 110 mls/hr Q24H IVPB 04/06/17 02:00 04/13/17 01:59 04/08/17 03:18 Dextrose (Dextrose 50%) STAT PRN IV Hypoglycemia 04/05/17 12:00 05/05/17 11:59 Escitalopram Oxalate (Lexapro) 10 mg DAILY ORAL 04/08/17 09:00 05/08/17 08:59 04/08/17 10:54 Heparin Sodium (Porcine) (Heparin 5000 units/ml) 5,000 units EVERY 12 HOURS SUBQ 04/05/17 21:00 05/05/17 20:59 04/08/17 21:36 Mirtazapine (Remeron) 7.5 mg BEDTIME ORAL 04/07/17 21:00 05/07/17 20:59 04/08/17 21:35 Pantoprazole (Protonix) 40 mg DAILY ORAL 04/06/17 09:00 05/06/17 08:59 04/08/17 10:54 Potassium Chloride (K-Dur) 40 meq TWICE A DAY ORAL 04/08/17 12:30 05/08/17 12:29 04/08/17 17:54 Tramadol HCl (Ultram) 50 mg Q6H PRN ORAL Moderate Pain (Pain Scale 4-6) 04/05/17 23:15 04/12/17 23:14 04/07/17 11:52 Assessment/Plan Status: stable Status Narrative MDD s/p SA she may need psych hospt lexapro 10mg remeron 7.5 Gonsalo Miller M.D. Apr 08, 2017 23:02
--- NOTE | 2017-04-08 23:04 | General Progress Note ---
Assessment/Plan Status: unchanged Assessment/Plan mdd s/p SA -cont current meds Subjective Date patient seen: Apr 07, 2017 Neurologic/Psychiatric: Reports: anxiety, depressed, emotional problems Allergies: Coded Allergies: No Known Allergies (Unverified , 04/04/17) Objective Last 24 Hour Vital Signs Date Time Temp Pulse Resp B/P (MAP) Pulse Ox O2 Delivery O2 Flow Rate FiO2 04/08/17 16:00 103 04/08/17 16:00 98.2 107 20 107/73 92 Room Air 04/08/17 12:00 109 04/08/17 12:00 98.0 99 18 127/74 95 Room Air 04/08/17 08:00 97.9 109 20 130/75 94 Room Air 04/08/17 08:00 115 04/08/17 04:00 97 04/08/17 00:00 116 Intake and Output 04/07/17 04/08/17 19:00 07:00 Intake Total 360 ml Output Total 1400 ml 800 ml Balance -1040 ml -800 ml Intake Oral 360 ml Output Urine Total 1400 ml 800 ml # Voids 1 # Bowel Movements 1 Laboratory Tests 04/08/17 05:50: White Blood Count 5.4, Red Blood Count 3.72L, Hemoglobin 11.9L, Hematocrit 35.1L , Mean Corpuscular Volume 94, Mean Corpuscular Hemoglobin 32.1H, Mean Corpuscular Hemoglobin Concent 34.0, Red Cell Distribution Width 11.6, Platelet Count 268, Mean Platelet Volume 5.7L, Neutrophils (%) (Auto) 71.5, Lymphocytes ( %) (Auto) 9.8L, Monocytes (%) (Auto) 15.5H, Eosinophils (%) (Auto) 1.8, Basophils (%) (Auto) 1.5, Sodium Level 137, Potassium Level 2.8L, Chloride Level 101, Carbon Dioxide Level 28, Anion Gap 8, Blood Urea Nitrogen 10, Creatinine 0.6, Estimat Glomerular Filtration Rate , Glucose Level 97, Calcium Level 7.0L Height (Feet): 5 Height (Inches): 1.00 Weight (Pounds): 125 General Appearance: no apparent distress, alert Neurologic: alert, oriented x 3, responsive, depressed affect Gonsalo Miller M.D. Apr 08, 2017 23:04
[2017-04-09] MEDS: traMADol 50mg tab ORAL PRN (01:00)
[2017-04-09] MEDS: cefTRIAXone 1 GM in D5W 55 ML IVPB SCH (02:35)
[2017-04-09 08:00] VITALS: BP 133/79
[2017-04-09 08:40] LABS: HEMATOCRIT 36.7 % (37.0-47.0); HEMOGLOBIN 12.5 G/DL (12.0-16.0); MEAN CORPUSCULAR VOLUME 94 FL (80-99); PLATELET COUNT 280 K/UL (150-450); RED BLOOD COUNT 3.89 M/UL (4.20-5.40); RED CELL DISTRIBUTION WIDTH 11.3 % (11.6-14.8); WHITE BLOOD COUNT 4.3 K/UL (4.8-10.8)
[2017-04-09 08:50] LABS: ANION GAP 7 mmol/L (5-15); BLOOD UREA NITROGEN 10 mg/dL (7-18); CALCIUM 7.4 MG/DL (8.5-10.1); CARBON DIOXIDE 28 MMOL/L (21-32); CHLORIDE 100 MMOL/L (98-107); CREATININE 0.6 MG/DL (0.55-1.30); POTASSIUM 3.6 MMOL/L (3.5-5.1); SODIUM 135 MMOL/L (136-145)
[2017-04-09] MEDS: Heparin 5000 units/ml inj SUBQ SCH ×2 (09:01→22:20)
[2017-04-09] MEDS ORDERED: Miralax 17gm pkt ORAL ONE (11:05)
[2017-04-09 12:00] VITALS: BP 115/73
--- NOTE | 2017-04-09 12:07 | General Progress Note ---
Assessment/Plan Status: stable, progressing Assessment/Plan mdd s/p SA -cont current meds Subjective Date patient seen: Apr 09, 2017 Neurologic/Psychiatric: Reports: anxiety, depressed, emotional problems Allergies: Coded Allergies: No Known Allergies (Unverified , 04/04/17) Subjective the pt is depressed. denied SI or SA. the pt has psychomotor retardation Objective Last 24 Hour Vital Signs Date Time Temp Pulse Resp B/P (MAP) Pulse Ox O2 Delivery O2 Flow Rate FiO2 04/09/17 12:00 97.5 120 21 115/73 92 Room Air 04/09/17 08:00 100 04/09/17 08:00 97.5 112 20 133/79 92 Room Air 04/09/17 04:00 101 04/09/17 01:59 98.2 04/09/17 00:00 122 04/08/17 20:00 107 04/08/17 16:00 103 04/08/17 16:00 98.2 107 20 107/73 92 Room Air Intake and Output 04/08/17 04/09/17 19:00 07:00 Intake Total 480 ml Output Total 1850 ml Balance 480 ml -1850 ml Intake Oral 480 ml Output Urine Total 1850 ml # Bowel Movements 1 Laboratory Tests 04/09/17 07:40: White Blood Count 4.3L, Red Blood Count 3.89L, Hemoglobin 12.5, Hematocrit 36.7L , Mean Corpuscular Volume 94, Mean Corpuscular Hemoglobin 32.1H, Mean Corpuscular Hemoglobin Concent 34.0, Red Cell Distribution Width 11.3L, Platelet Count 280, Mean Platelet Volume 5.5L, Neutrophils (%) (Auto) , Lymphocytes (%) (Auto) , Monocytes (%) (Auto) , Eosinophils (%) (Auto) , Basophils (%) (Auto) , Differential Total Cells Counted 100, Neutrophils % ( Manual) 65, Lymphocytes % (Manual) 23, Monocytes % (Manual) 11H, Eosinophils % ( Manual) 1, Basophils % (Manual) 0, Band Neutrophils 0, Platelet Estimate Adequate, Platelet Morphology Normal, Red Blood Cell Morphology Normal, Sodium Level 135L, Potassium Level 3.6, Chloride Level 100, Carbon Dioxide Level 28, Anion Gap 7, Blood Urea Nitrogen 10, Creatinine 0.6, Estimat Glomerular Filtration Rate , Glucose Level 113H, Calcium Level 7.4L Height (Feet): 5 Height (Inches): 1.00 Weight (Pounds): 125 General Appearance: no apparent distress, alert, thin Neurologic: alert, oriented x 3, responsive, depressed affect Gonsalo Miller M.D. Apr 09, 2017 12:07
--- NOTE | 2017-04-09 13:02 | Infectious Diseases Prog Note ---
Assessment/Plan Assessment/Plan Abx: Ceftriaxone 04/06- IV Vanco 04/06-04/08 Assessment: Unintention temazepam overdose 04/11 CoNS bacteremia- likely contaminant Bcx 04/05 04/11 Staph sp; Bcx 04/06 NTD -CXR: no acute disease Afebrile, no leukocytosis Pyuria, ?UTI -u/a TNTC, nit neg, leuk +3; Ucx 30-40 K Group B strep Recent lumbar spine fracture Chronic low back pain, GERD, Osteoporosis HTN Plan: -Continue ceftriaxone #4/5 for possible UTI given pyuria and unable to asses for symptoms -04/08 SP IV Vanco #3 -f/u cx -MOnitor CBC/CMP, temperatures Thank you for this consultation. Will continue to follow along with you. Discussed with RN. Subjective Allergies: Coded Allergies: No Known Allergies (Unverified , 04/04/17) Subjective afebrile no leukocytosis repeat BCx NTD Objective Vital Signs Last 24 Hour Vital Signs Date Time Temp Pulse Resp B/P (MAP) Pulse Ox O2 Delivery O2 Flow Rate FiO2 04/09/17 12:00 97.5 120 21 115/73 92 Room Air 04/09/17 08:00 100 04/09/17 08:00 97.5 112 20 133/79 92 Room Air 04/09/17 04:00 101 04/09/17 01:59 98.2 04/09/17 00:00 122 04/08/17 20:00 107 04/08/17 16:00 103 04/08/17 16:00 98.2 107 20 107/73 92 Room Air Height (Feet): 5 Height (Inches): 1.00 Weight (Pounds): 125 Objective GENERAL: The patient is a well-developed and well-nourished female, in no apparent distress. HEENT: Eyes, pupils are equal and responsive to light and accommodation.Extraocular movements are intact. NECK: Supple without lymphadenopathy. CHEST: Lungs are clear to auscultation bilaterally without wheezes or rales. CARDIOVASCULAR: Regular rhythm and rate. S1 and S2 are normal without murmurs , rubs, or gallops. ABDOMEN: Soft, nontender, and nondistended. Positive bowel sounds. No evidence of hepatosplenomegaly. Currently, no rebound or guarding noted. EXTREMITIES: Negative for clubbing, cyanosis, or edema. Microbiology Date/Time Source Procedure Growth Status 04/06/17 16:58 Blood Blood Culture - Preliminary NO GROWTH AFTER 48 HOURS Resulted 04/06/17 16:50 Blood Blood Culture - Preliminary NO GROWTH AFTER 48 HOURS Resulted Laboratory Tests Test 04/09/17 07:40 White Blood Count 4.3 K/UL (4.8-10.8) L Red Blood Count 3.89 M/UL (4.20-5.40) L Hemoglobin 12.5 G/DL (12.0-16.0) Hematocrit 36.7 % (37.0-47.0) L Mean Corpuscular Volume 94 FL (80-99) Mean Corpuscular Hemoglobin 32.1 PG (27.0-31.0) H Mean Corpuscular Hemoglobin Concent 34.0 G/DL (32.0-36.0) Red Cell Distribution Width 11.3 % (11.6-14.8) L Platelet Count 280 K/UL (150-450) Mean Platelet Volume 5.5 FL (6.5-10.1) L Neutrophils (%) (Auto) % (45.0-75.0) Lymphocytes (%) (Auto) % (20.0-45.0) Monocytes (%) (Auto) % (1.0-10.0) Eosinophils (%) (Auto) % (0.0-3.0) Basophils (%) (Auto) % (0.0-2.0) Differential Total Cells Counted 100 Neutrophils % (Manual) 65 % (45-75) Lymphocytes % (Manual) 23 % (20-45) Monocytes % (Manual) 11 % (1-10) H Eosinophils % (Manual) 1 % (0-3) Basophils % (Manual) 0 % (0-2) Band Neutrophils 0 % (0-8) Platelet Estimate Adequate Platelet Morphology Normal Red Blood Cell Morphology Normal Sodium Level 135 MMOL/L (136-145) L Potassium Level 3.6 MMOL/L (3.5-5.1) Chloride Level 100 MMOL/L (98-107) Carbon Dioxide Level 28 MMOL/L (21-32) Anion Gap 7 mmol/L (5-15) Blood Urea Nitrogen 10 mg/dL (7-18) Creatinine 0.6 MG/DL (0.55-1.30) Estimat Glomerular Filtration Rate mL/min (>60) Glucose Level 113 MG/DL (74-106) H Calcium Level 7.4 MG/DL (8.5-10.1) L Current Medications Medications (Trade) Dose Ordered Sig/Slade Route PRN Reason Start Time Stop Time Status Last Admin Dose Admin Ceftriaxone Sodium 1 gm/ Dextrose 55 ml @ 110 mls/hr Q24H IVPB 04/06/17 02:00 04/13/17 01:59 04/09/17 02:35 Dextrose (Dextrose 50%) STAT PRN IV Hypoglycemia 04/05/17 12:00 05/05/17 11:59 Escitalopram Oxalate (Lexapro) 10 mg DAILY ORAL 04/08/17 09:00 05/08/17 08:59 04/09/17 09:00 Heparin Sodium (Porcine) (Heparin 5000 units/ml) 5,000 units EVERY 12 HOURS SUBQ 04/05/17 21:00 05/05/17 20:59 04/09/17 09:01 Mirtazapine (Remeron) 7.5 mg BEDTIME ORAL 04/07/17 21:00 05/07/17 20:59 04/08/17 21:35 Pantoprazole (Protonix) 40 mg DAILY ORAL 04/06/17 09:00 05/06/17 08:59 04/09/17 09:00 Potassium Chloride (K-Dur) 40 meq TWICE A DAY ORAL 04/08/17 12:30 05/08/17 12:29 04/09/17 09:00 Tramadol HCl (Ultram) 50 mg Q6H PRN ORAL Moderate Pain (Pain Scale 4-6) 04/05/17 23:15 04/12/17 23:14 04/09/17 01:00 Dali Alcantar M.D. Apr 09, 2017 13:02
--- NOTE | 2017-04-09 15:33 | Consultation ---
History of Present Illness General Date patient seen: Apr 09, 2017 Chief Complaint: Altered Level of Consciousness Reason for Consultation: inpatient management Present Illness HPI 86-year-old female with history of hypertension, chronic back pain presented to ER with CC of ALOC with overdose of Temazepam. Family states that she was recently discharged from the hospital for one week, had a lumbar fracture, stated that she states that her pain has been terrible. Her family found her altered, sleepy. she is admitted for acute encephalopathy, drug overdose and intractable back pain. Allergies: Coded Allergies: No Known Allergies (Unverified , 04/04/17) Medication History Scheduled Amlodipine Besylate* (Amlodipine Besylate*), 5 MG ORAL DAILY, (Reported) Esomeprazole Magnesium (Nexium), 40 MG ORAL DAILY, (Reported) Metoprolol Succinate* (Metoprolol Succinate*), 50 MG ORAL DAILY, (Reported) Raloxifene HCl (Raloxifene HCl), 60 MG ORAL DAILY, (Reported) Temazepam (Temazepam*), 15 MG ORAL BEDTIME, (Reported) Scheduled PRN Lorazepam* (Lorazepam*), 0.5 MG ORAL EVERY 8 HOURS PRN for For Anxiety, ( Reported) Tramadol Hcl* (Ultram*), 50 MG ORAL DAILY PRN for Pain Scale (3-5), (Reported) Patient History Healthcare decision maker Clayton Quintana Resuscitation status Full Code Advanced Directive on File No Past Medical/Surgical History Past Medical/Surgical History: (1) Chronic low back pain (2) Hypertension Review of Systems Constitutional: Reports: malaise Eye: Reports: no symptoms ENT: Reports: no symptoms Respiratory: Reports: no symptoms Gastrointestinal: Reports: no symptoms Physical Exam General Appearance: WD/WN Lines, tubes and drains: peripheral HEENT: normocephalic, atraumatic Neck: non-tender, normal alignment Respiratory/Chest: chest wall non-tender, lungs clear Breasts: no masses Cardiovascular/Chest: normal peripheral pulses Abdomen: normal bowel sounds Genitourinary/Rectal: normal genital exam Extremities: normal range of motion Skin Exam: normal pigmentation 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 Last 24 Hour Vital Signs Date Time Temp Pulse Resp B/P (MAP) Pulse Ox O2 Delivery O2 Flow Rate FiO2 04/09/17 12:00 102 04/09/17 12:00 97.5 120 21 115/73 92 Room Air 1/2/18 08:00 100 04/09/17 08:00 97.5 112 20 133/79 92 Room Air 04/09/17 04:00 101 04/09/17 01:59 98.2 04/09/17 00:00 122 04/08/17 20:00 107 04/08/17 16:00 103 04/08/17 16:00 98.2 107 20 107/73 92 Room Air Intake and Output 04/08/17 04/09/17 19:00 07:00 Intake Total 480 ml Output Total 1850 ml Balance 480 ml -1850 ml Intake Oral 480 ml Output Urine Total 1850 ml # Bowel Movements 1 Laboratory Tests Test 04/09/17 07:40 White Blood Count 4.3 K/UL (4.8-10.8) L Red Blood Count 3.89 M/UL (4.20-5.40) L Hemoglobin 12.5 G/DL (12.0-16.0) Hematocrit 36.7 % (37.0-47.0) L Mean Corpuscular Volume 94 FL (80-99) Mean Corpuscular Hemoglobin 32.1 PG (27.0-31.0) H Mean Corpuscular Hemoglobin Concent 34.0 G/DL (32.0-36.0) Red Cell Distribution Width 11.3 % (11.6-14.8) L Platelet Count 280 K/UL (150-450) Mean Platelet Volume 5.5 FL (6.5-10.1) L Neutrophils (%) (Auto) % (45.0-75.0) Lymphocytes (%) (Auto) % (20.0-45.0) Monocytes (%) (Auto) % (1.0-10.0) Eosinophils (%) (Auto) % (0.0-3.0) Basophils (%) (Auto) % (0.0-2.0) Differential Total Cells Counted 100 Neutrophils % (Manual) 65 % (45-75) Lymphocytes % (Manual) 23 % (20-45) Monocytes % (Manual) 11 % (1-10) H Eosinophils % (Manual) 1 % (0-3) Basophils % (Manual) 0 % (0-2) Band Neutrophils 0 % (0-8) Platelet Estimate Adequate Platelet Morphology Normal Red Blood Cell Morphology Normal Sodium Level 135 MMOL/L (136-145) L Potassium Level 3.6 MMOL/L (3.5-5.1) Chloride Level 100 MMOL/L (98-107) Carbon Dioxide Level 28 MMOL/L (21-32) Anion Gap 7 mmol/L (5-15) Blood Urea Nitrogen 10 mg/dL (7-18) Creatinine 0.6 MG/DL (0.55-1.30) Estimat Glomerular Filtration Rate mL/min (>60) Glucose Level 113 MG/DL (74-106) H Calcium Level 7.4 MG/DL (8.5-10.1) L Height (Feet): 5 Height (Inches): 1.00 Weight (Pounds): 125 Medications Current Medications Medications (Trade) Dose Ordered Sig/Slade Route PRN Reason Start Time Stop Time Status Last Admin Dose Admin Ceftriaxone Sodium 1 gm/ Dextrose 55 ml @ 110 mls/hr Q24H IVPB 04/06/17 02:00 04/13/17 01:59 04/09/17 02:35 Dextrose (Dextrose 50%) STAT PRN IV Hypoglycemia 04/05/17 12:00 05/05/17 11:59 Escitalopram Oxalate (Lexapro) 10 mg DAILY ORAL 04/08/17 09:00 05/08/17 08:59 04/09/17 09:00 Heparin Sodium (Porcine) (Heparin 5000 units/ml) 5,000 units EVERY 12 HOURS SUBQ 04/05/17 21:00 05/05/17 20:59 04/09/17 09:01 Mirtazapine (Remeron) 7.5 mg BEDTIME ORAL 04/07/17 21:00 05/07/17 20:59 04/08/17 21:35 Pantoprazole (Protonix) 40 mg DAILY ORAL 04/06/17 09:00 05/06/17 08:59 04/09/17 09:00 Potassium Chloride (K-Dur) 40 meq TWICE A DAY ORAL 04/08/17 12:30 05/08/17 12:29 04/09/17 09:00 Tramadol HCl (Ultram) 50 mg Q6H PRN ORAL Moderate Pain (Pain Scale 4-6) 04/05/17 23:15 04/12/17 23:14 04/09/17 01:00 Assessment/Plan Problem List: (1) Benzodiazepine overdose ICD Codes: T42.4X1A - Poisoning by benzodiazepines, accidental (unintentional) , initial encounter SNOMED: 968955562 (2) Altered mental status ICD Codes: R41.82 - Altered mental status, unspecified SNOMED: 435427054 (3) Hypertension ICD Codes: I10 - Essential (primary) hypertension SNOMED: 99895764 (4) Chronic low back pain ICD Codes: M54.5 - Low back pain; G89.29 - Other chronic pain SNOMED: 944161264 Assessment/Plan neuro evaluation pt/ot psych evaluation reviewed social service evaluation. monitor BP ALO ORNELAS Apr 09, 2017 15:33
[2017-04-09 16:00] VITALS: BP_SYST 144; BP_SYST 155; BP_DIAS 80; BP_DIAS 85
--- NOTE | 2017-04-09 16:48 | Internal Med Progress Note ---
Subjective Date of Service: Apr 09, 2017 Physician Name Brian Dexter Attending Physician Homar Hernandez MD Current Medications Medications (Trade) Dose Ordered Sig/Slade Route PRN Reason Start Time Stop Time Status Last Admin Dose Admin Amlodipine Besylate (Norvasc) 5 mg DAILY ORAL 04/09/17 16:45 05/09/17 16:44 Ceftriaxone Sodium 1 gm/ Dextrose 55 ml @ 110 mls/hr Q24H IVPB 04/06/17 02:00 04/13/17 01:59 04/09/17 02:35 Dextrose (Dextrose 50%) STAT PRN IV Hypoglycemia 04/05/17 12:00 05/05/17 11:59 Escitalopram Oxalate (Lexapro) 10 mg DAILY ORAL 04/08/17 09:00 05/08/17 08:59 04/09/17 09:00 Heparin Sodium (Porcine) (Heparin 5000 units/ml) 5,000 units EVERY 12 HOURS SUBQ 04/05/17 21:00 05/05/17 20:59 04/09/17 09:01 Metoprolol Succinate (Toprol XL) 50 mg DAILY ORAL 04/09/17 16:45 05/09/17 16:44 Mirtazapine (Remeron) 7.5 mg BEDTIME ORAL 04/07/17 21:00 05/07/17 20:59 04/08/17 21:35 Pantoprazole (Protonix) 40 mg DAILY ORAL 04/06/17 09:00 05/06/17 08:59 04/09/17 09:00 Potassium Chloride (K-Dur) 40 meq TWICE A DAY ORAL 04/08/17 12:30 05/08/17 12:29 04/09/17 09:00 Tramadol HCl (Ultram) 50 mg Q6H PRN ORAL Moderate Pain (Pain Scale 4-6) 04/05/17 23:15 04/12/17 23:14 04/09/17 01:00 Allergies: Coded Allergies: No Known Allergies (Unverified , 04/04/17) ROS Limited/Unobtainable: No Constitutional: Reports: no symptoms HEENT: Reports: no symptoms Cardiovascular: Reports: no symptoms Respiratory: Reports: no symptoms Gastrointestinal/Abdominal: Reports: no symptoms Neurologic/Psychiatric: Reports: no symptoms Subjective 86 YO F admitted with temazepam overdose-await psych consult.. Now positive blood culture.. Still confused. Cover for Int Med-Dr Hernandez. Await transfer to [facility] fac. Objective Last Vital Signs Date Time Temp Pulse Resp B/P (MAP) Pulse Ox O2 Delivery O2 Flow Rate FiO2 04/09/17 16:00 97.5 106 21 144/85 92 Room Air General Appearance: WD/WN, no apparent distress, alert EENT: PERRL/EOMI, normal ENT inspection, TMs normal Neck: non-tender, normal alignment, supple, normal inspection Cardiovascular: normal peripheral pulses, normal rate, regular rhythm, no gallop/murmur, no JVD Respiratory/Chest: chest wall non-tender, lungs clear, normal breath sounds, no respiratory distress, no accessory muscle use Abdomen: normal bowel sounds, non tender, soft, no organomegaly, no mass Extremities: normal range of motion 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, no motor/sensory deficits Laboratory Tests Test 04/09/17 07:40 White Blood Count 4.3 K/UL (4.8-10.8) L Red Blood Count 3.89 M/UL (4.20-5.40) L Hemoglobin 12.5 G/DL (12.0-16.0) Hematocrit 36.7 % (37.0-47.0) L Mean Corpuscular Volume 94 FL (80-99) Mean Corpuscular Hemoglobin 32.1 PG (27.0-31.0) H Mean Corpuscular Hemoglobin Concent 34.0 G/DL (32.0-36.0) Red Cell Distribution Width 11.3 % (11.6-14.8) L Platelet Count 280 K/UL (150-450) Mean Platelet Volume 5.5 FL (6.5-10.1) L Neutrophils (%) (Auto) % (45.0-75.0) Lymphocytes (%) (Auto) % (20.0-45.0) Monocytes (%) (Auto) % (1.0-10.0) Eosinophils (%) (Auto) % (0.0-3.0) Basophils (%) (Auto) % (0.0-2.0) Differential Total Cells Counted 100 Neutrophils % (Manual) 65 % (45-75) Lymphocytes % (Manual) 23 % (20-45) Monocytes % (Manual) 11 % (1-10) H Eosinophils % (Manual) 1 % (0-3) Basophils % (Manual) 0 % (0-2) Band Neutrophils 0 % (0-8) Platelet Estimate Adequate Platelet Morphology Normal Red Blood Cell Morphology Normal Sodium Level 135 MMOL/L (136-145) L Potassium Level 3.6 MMOL/L (3.5-5.1) Chloride Level 100 MMOL/L (98-107) Carbon Dioxide Level 28 MMOL/L (21-32) Anion Gap 7 mmol/L (5-15) Blood Urea Nitrogen 10 mg/dL (7-18) Creatinine 0.6 MG/DL (0.55-1.30) Estimat Glomerular Filtration Rate mL/min (>60) Glucose Level 113 MG/DL (74-106) H Calcium Level 7.4 MG/DL (8.5-10.1) L Microbiology Date/Time Source Procedure Growth Status 04/06/17 16:58 Blood Blood Culture - Preliminary NO GROWTH AFTER 48 HOURS Resulted 04/06/17 16:50 Blood Blood Culture - Preliminary NO GROWTH AFTER 48 HOURS Resulted Intake and Output 04/08/17 04/09/17 19:00 07:00 Intake Total 480 ml Output Total 1850 ml Balance 480 ml -1850 ml Intake Oral 480 ml Output Urine Total 1850 ml # Bowel Movements 1 Objective General Appearance: WD/WN, no apparent distress, lethargic EENT: PERRL/EOMI, normal ENT inspection, TMs normal Neck: non-tender, normal alignment, supple, normal inspection Cardiovascular: normal peripheral pulses, normal rate, regular rhythm, no gallop/murmur, no JVD Respiratory/Chest: chest wall non-tender, lungs clear, normal breath sounds, no respiratory distress, no accessory muscle use Abdomen: normal bowel sounds, non tender, soft, no organomegaly, no mass Extremities: normal range of motion, non-tender 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 (3) Chronic low back pain Assessment & Plan: Continue tramadol. (4) UTI (urinary tract infection) Assessment & Plan: Strep agalactiae group B. Cont rocephin and vanco. Await Inf Dis consult. (5) Sepsis Assessment & Plan: Gram pos cocci. Await ID and sens. Start IV vanco (6) Benzodiazepine overdose Assessment & Plan: Temazepam. See psych consult-continue remeron Status: stable Assessment/Plan Discharge to SNF when bed available BRIAN DEXTER Apr 09, 2017 16:48
--- NOTE | 2017-04-09 16:57 | Internal Med Progress Note ---
Subjective Date of Service: Apr 09, 2017 Physician Name Brian Dexter Attending Physician Homar Hernandez MD Current Medications Medications (Trade) Dose Ordered Sig/Slade Route PRN Reason Start Time Stop Time Status Last Admin Dose Admin Amlodipine Besylate (Norvasc) 5 mg DAILY ORAL 04/09/17 16:45 05/09/17 16:44 Ceftriaxone Sodium 1 gm/ Dextrose 55 ml @ 110 mls/hr Q24H IVPB 04/06/17 02:00 04/13/17 01:59 04/09/17 02:35 Dextrose (Dextrose 50%) STAT PRN IV Hypoglycemia 04/05/17 12:00 05/05/17 11:59 Escitalopram Oxalate (Lexapro) 10 mg DAILY ORAL 04/08/17 09:00 05/08/17 08:59 04/09/17 09:00 Heparin Sodium (Porcine) (Heparin 5000 units/ml) 5,000 units EVERY 12 HOURS SUBQ 04/05/17 21:00 05/05/17 20:59 04/09/17 09:01 Metoprolol Succinate (Toprol XL) 50 mg DAILY ORAL 04/09/17 16:45 05/09/17 16:44 Mirtazapine (Remeron) 7.5 mg BEDTIME ORAL 04/07/17 21:00 05/07/17 20:59 04/08/17 21:35 Pantoprazole (Protonix) 40 mg DAILY ORAL 04/06/17 09:00 05/06/17 08:59 04/09/17 09:00 Potassium Chloride (K-Dur) 40 meq TWICE A DAY ORAL 04/08/17 12:30 05/08/17 12:29 04/09/17 09:00 Tramadol HCl (Ultram) 50 mg Q6H PRN ORAL Moderate Pain (Pain Scale 4-6) 04/05/17 23:15 04/12/17 23:14 04/09/17 01:00 Allergies: Coded Allergies: No Known Allergies (Unverified , 04/04/17) ROS Limited/Unobtainable: No Constitutional: Reports: no symptoms HEENT: Reports: no symptoms Cardiovascular: Reports: chest pain Respiratory: Reports: no symptoms Gastrointestinal/Abdominal: Reports: no symptoms Genitourinary: Reports: no symptoms Neurologic/Psychiatric: Reports: no symptoms Subjective 86 YO F admitted with temazepam overdose-await psych consult.. Now positive blood culture.. Still confused. Cover for Int Med-Dr Hernandez. Await transfer to residential fac. Objective Last Vital Signs Date Time Temp Pulse Resp B/P (MAP) Pulse Ox O2 Delivery O2 Flow Rate FiO2 04/09/17 16:00 97.5 106 21 144/85 92 Room Air Laboratory Tests Test 04/09/17 07:40 White Blood Count 4.3 K/UL (4.8-10.8) L Red Blood Count 3.89 M/UL (4.20-5.40) L Hemoglobin 12.5 G/DL (12.0-16.0) Hematocrit 36.7 % (37.0-47.0) L Mean Corpuscular Volume 94 FL (80-99) Mean Corpuscular Hemoglobin 32.1 PG (27.0-31.0) H Mean Corpuscular Hemoglobin Concent 34.0 G/DL (32.0-36.0) Red Cell Distribution Width 11.3 % (11.6-14.8) L Platelet Count 280 K/UL (150-450) Mean Platelet Volume 5.5 FL (6.5-10.1) L Neutrophils (%) (Auto) % (45.0-75.0) Lymphocytes (%) (Auto) % (20.0-45.0) Monocytes (%) (Auto) % (1.0-10.0) Eosinophils (%) (Auto) % (0.0-3.0) Basophils (%) (Auto) % (0.0-2.0) Differential Total Cells Counted 100 Neutrophils % (Manual) 65 % (45-75) Lymphocytes % (Manual) 23 % (20-45) Monocytes % (Manual) 11 % (1-10) H Eosinophils % (Manual) 1 % (0-3) Basophils % (Manual) 0 % (0-2) Band Neutrophils 0 % (0-8) Platelet Estimate Adequate Platelet Morphology Normal Red Blood Cell Morphology Normal Sodium Level 135 MMOL/L (136-145) L Potassium Level 3.6 MMOL/L (3.5-5.1) Chloride Level 100 MMOL/L (98-107) Carbon Dioxide Level 28 MMOL/L (21-32) Anion Gap 7 mmol/L (5-15) Blood Urea Nitrogen 10 mg/dL (7-18) Creatinine 0.6 MG/DL (0.55-1.30) Estimat Glomerular Filtration Rate mL/min (>60) Glucose Level 113 MG/DL (74-106) H Calcium Level 7.4 MG/DL (8.5-10.1) L Microbiology Date/Time Source Procedure Growth Status 04/06/17 16:58 Blood Blood Culture - Preliminary NO GROWTH AFTER 48 HOURS Resulted Intake and Output 04/08/17 04/09/17 19:00 07:00 Intake Total 480 ml Output Total 1850 ml Balance 480 ml -1850 ml Intake Oral 480 ml Output Urine Total 1850 ml # Bowel Movements 1 Objective General Appearance: WD/WN, no apparent distress, lethargic EENT: PERRL/EOMI, normal ENT inspection, TMs normal Neck: non-tender, normal alignment, supple, normal inspection Cardiovascular: normal peripheral pulses, normal rate, regular rhythm, no gallop/murmur, no JVD Respiratory/Chest: chest wall non-tender, lungs clear, normal breath sounds, no respiratory distress, no accessory muscle use Abdomen: normal bowel sounds, non tender, soft, no organomegaly, no mass Extremities: normal range of motion, non-tender 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 (3) Chronic low back pain Assessment & Plan: Continue tramadol. (4) UTI (urinary tract infection) Assessment & Plan: Strep agalactiae group B. Cont rocephin and vanco. Await Inf Dis consult. (5) Sepsis Assessment & Plan: Gram pos cocci. Await ID and sens. Start IV vanco (6) Benzodiazepine overdose Assessment & Plan: Temazepam. See psych consult-continue remeron Assessment/Plan Discharge to SNF when bed available BRIAN DEXTER Apr 09, 2017 16:57
[2017-04-09] MEDS: Metoprolol Succinate XL 50mg tab ORAL SCH (17:06)
[2017-04-09 20:00] VITALS: BP 135/83
[2017-04-10] VITALS: BP 142/86
[2017-04-10] MEDS: cefTRIAXone 1 GM in D5W 55 ML IVPB SCH (01:44)
[2017-04-10] MEDS: traMADol 50mg tab ORAL PRN (03:18)
[2017-04-10 04:00] VITALS: BP 150/85
[2017-04-10 07:33] LABS: BASOPHILS % (AUTO) 1.3 % (0.0-2.0); EOSINOPHILS % (AUTO) 3.3 % (0.0-3.0); HEMATOCRIT 40.9 % (37.0-47.0); HEMOGLOBIN 13.8 G/DL (12.0-16.0); LYMPHOCYTES % (AUTO) 17.4 % (20.0-45.0); MEAN CORPUSCULAR VOLUME 95 FL (80-99); MONOCYTES % (AUTO) 15.6 % (1.0-10.0); NEUTROPHILS % (AUTO) 62.5 % (45.0-75.0); PLATELET COUNT 326 K/UL (150-450); RED BLOOD COUNT 4.29 M/UL (4.20-5.40); RED CELL DISTRIBUTION WIDTH 11.2 % (11.6-14.8); WHITE BLOOD COUNT 5.2 K/UL (4.8-10.8)
[2017-04-10 07:44] LABS: ANION GAP 7 mmol/L (5-15); BLOOD UREA NITROGEN 10 mg/dL (7-18); CALCIUM 7.8 MG/DL (8.5-10.1); CARBON DIOXIDE 27 MMOL/L (21-32); CHLORIDE 101 MMOL/L (98-107); CREATININE 0.6 MG/DL (0.55-1.30); POTASSIUM 4.7 MMOL/L (3.5-5.1); SODIUM 135 MMOL/L (136-145)
[2017-04-10 08:47] VITALS: BP 113/80
[2017-04-10] MEDS: Metoprolol Succinate XL 50mg tab ORAL SCH (09:51)
[2017-04-10] MEDS: Heparin 5000 units/ml inj SUBQ SCH (09:53)
--- NOTE | 2017-04-10 11:41 | Infectious Diseases Prog Note ---
Assessment/Plan Assessment/Plan Abx: Ceftriaxone 04/06- IV Vanco 04/06-04/08 Assessment: Unintention temazepam overdose 04/11 CoNS bacteremia- likely contaminant Bcx 04/05 04/11 Staph sp; Bcx 04/06 NTD -CXR: no acute disease Afebrile, no leukocytosis Pyuria, ?UTI -u/a TNTC, nit neg, leuk +3; Ucx 30-40 K Group B strep Recent lumbar spine fracture Chronic low back pain, GERD, Osteoporosis HTN Plan: -Continue ceftriaxone #5/5 for possible UTI given pyuria and unable to asses for symptoms -04/08 SP IV Vanco #3 -f/u cx -MOnitor CBC/CMP, temperatures Thank you for this consultation. Will continue to follow along with you. Discussed with RN. Subjective Allergies: Coded Allergies: No Known Allergies (Unverified , 04/04/17) Subjective afebrile no leukocytosis repeat BCx NTD Objective Vital Signs Last 24 Hour Vital Signs Date Time Temp Pulse Resp B/P (MAP) Pulse Ox O2 Delivery O2 Flow Rate FiO2 04/10/17 09:51 91 113/80 04/10/17 09:50 91 113/80 04/10/17 08:47 96.1 91 20 113/80 96 04/10/17 04:17 97.7 04/10/17 04:00 97.9 85 20 150/85 96 04/10/17 00:00 97.6 97 18 142/86 92 04/09/17 20:00 95 04/09/17 20:00 97.7 99 20 135/83 93 Room Air 04/09/17 17:06 102 144/85 04/09/17 17:06 102 144/85 04/09/17 16:00 97.5 106 21 144/85 92 Room Air 04/09/17 16:00 102 04/09/17 12:00 102 04/09/17 12:00 97.5 120 21 115/73 92 Room Air Height (Feet): 5 Height (Inches): 1.00 Weight (Pounds): 125 Objective GENERAL: The patient is a well-developed and well-nourished female, in no apparent distress. HEENT: Eyes, pupils are equal and responsive to light and accommodation.Extraocular movements are intact. NECK: Supple without lymphadenopathy. CHEST: Lungs are clear to auscultation bilaterally without wheezes or rales. CARDIOVASCULAR: Regular rhythm and rate. S1 and S2 are normal without murmurs , rubs, or gallops. ABDOMEN: Soft, nontender, and nondistended. Positive bowel sounds. No evidence of hepatosplenomegaly. Currently, no rebound or guarding noted. EXTREMITIES: Negative for clubbing, cyanosis, or edema. Laboratory Tests Test 04/10/17 05:10 White Blood Count 5.2 K/UL (4.8-10.8) Red Blood Count 4.29 M/UL (4.20-5.40) Hemoglobin 13.8 G/DL (12.0-16.0) Hematocrit 40.9 % (37.0-47.0) Mean Corpuscular Volume 95 FL (80-99) Mean Corpuscular Hemoglobin 32.2 PG (27.0-31.0) H Mean Corpuscular Hemoglobin Concent 33.8 G/DL (32.0-36.0) Red Cell Distribution Width 11.2 % (11.6-14.8) L Platelet Count 326 K/UL (150-450) Mean Platelet Volume 5.7 FL (6.5-10.1) L Neutrophils (%) (Auto) 62.5 % (45.0-75.0) Lymphocytes (%) (Auto) 17.4 % (20.0-45.0) L Monocytes (%) (Auto) 15.6 % (1.0-10.0) H Eosinophils (%) (Auto) 3.3 % (0.0-3.0) H Basophils (%) (Auto) 1.3 % (0.0-2.0) Sodium Level 135 MMOL/L (136-145) L Potassium Level 4.7 MMOL/L (3.5-5.1) Chloride Level 101 MMOL/L (98-107) Carbon Dioxide Level 27 MMOL/L (21-32) Anion Gap 7 mmol/L (5-15) Blood Urea Nitrogen 10 mg/dL (7-18) Creatinine 0.6 MG/DL (0.55-1.30) Estimat Glomerular Filtration Rate mL/min (>60) Glucose Level 111 MG/DL (74-106) H Calcium Level 7.8 MG/DL (8.5-10.1) L Current Medications Medications (Trade) Dose Ordered Sig/Slade Route PRN Reason Start Time Stop Time Status Last Admin Dose Admin Amlodipine Besylate (Norvasc) 5 mg DAILY ORAL 04/09/17 16:45 05/09/17 16:44 04/10/17 09:50 Ceftriaxone Sodium 1 gm/ Dextrose 55 ml @ 110 mls/hr Q24H IVPB 04/06/17 02:00 04/13/17 01:59 04/10/17 01:44 Dextrose (Dextrose 50%) STAT PRN IV Hypoglycemia 04/05/17 12:00 05/05/17 11:59 Escitalopram Oxalate (Lexapro) 10 mg DAILY ORAL 04/08/17 09:00 05/08/17 08:59 04/10/17 09:49 Heparin Sodium (Porcine) (Heparin 5000 units/ml) 5,000 units EVERY 12 HOURS SUBQ 04/05/17 21:00 05/05/17 20:59 04/10/17 09:53 Metoprolol Succinate (Toprol XL) 50 mg DAILY ORAL 04/09/17 16:45 05/09/17 16:44 04/10/17 09:51 Mirtazapine (Remeron) 7.5 mg BEDTIME ORAL 04/07/17 21:00 05/07/17 20:59 04/09/17 22:17 Pantoprazole (Protonix) 40 mg DAILY ORAL 04/06/17 09:00 05/06/17 08:59 04/10/17 09:49 Potassium Chloride (K-Dur) 40 meq TWICE A DAY ORAL 04/08/17 12:30 05/08/17 12:29 04/10/17 09:50 Tramadol HCl (Ultram) 50 mg Q6H PRN ORAL Moderate Pain (Pain Scale 4-6) 04/05/17 23:15 04/12/17 23:14 04/10/17 03:18 Dali Alcantar M.D. Apr 10, 2017 11:41
[2017-04-10 12:00] VITALS: BP 142/87
--- NOTE | 2017-04-10 12:23 | Internal Med Progress Note ---
Subjective Date of Service: Apr 10, 2017 Physician Name Brian Dexter Attending Physician Homar Hernandez MD Current Medications Medications (Trade) Dose Ordered Sig/Slade Route PRN Reason Start Time Stop Time Status Last Admin Dose Admin Amlodipine Besylate (Norvasc) 5 mg DAILY ORAL 04/09/17 16:45 05/09/17 16:44 04/10/17 09:50 Dextrose (Dextrose 50%) STAT PRN IV Hypoglycemia 04/05/17 12:00 05/05/17 11:59 Escitalopram Oxalate (Lexapro) 10 mg DAILY ORAL 04/08/17 09:00 05/08/17 08:59 04/10/17 09:49 Heparin Sodium (Porcine) (Heparin 5000 units/ml) 5,000 units EVERY 12 HOURS SUBQ 04/05/17 21:00 05/05/17 20:59 04/10/17 09:53 Metoprolol Succinate (Toprol XL) 50 mg DAILY ORAL 04/09/17 16:45 05/09/17 16:44 04/10/17 09:51 Mirtazapine (Remeron) 7.5 mg BEDTIME ORAL 04/07/17 21:00 05/07/17 20:59 04/09/17 22:17 Pantoprazole (Protonix) 40 mg DAILY ORAL 04/06/17 09:00 05/06/17 08:59 04/10/17 09:49 Potassium Chloride (K-Dur) 40 meq TWICE A DAY ORAL 04/08/17 12:30 05/08/17 12:29 04/10/17 09:50 Tramadol HCl (Ultram) 50 mg Q6H PRN ORAL Moderate Pain (Pain Scale 4-6) 04/05/17 23:15 04/12/17 23:14 04/10/17 03:18 Allergies: Coded Allergies: No Known Allergies (Unverified , 04/04/17) ROS Limited/Unobtainable: No Constitutional: Reports: no symptoms HEENT: Reports: no symptoms Cardiovascular: Reports: no symptoms Respiratory: Reports: no symptoms Gastrointestinal/Abdominal: Reports: no symptoms Genitourinary: Reports: no symptoms Neurologic/Psychiatric: Reports: no symptoms Subjective 86 YO F admitted with temazepam overdose-await psych consult.. Now positive blood culture. Cover for Int Med-Dr Hernandez. Await transfer to assisted fac vs home with home health Objective Last Vital Signs Date Time Temp Pulse Resp B/P (MAP) Pulse Ox O2 Delivery O2 Flow Rate FiO2 04/10/17 09:51 91 113/80 04/10/17 08:47 96.1 20 96 04/09/17 20:00 Room Air Laboratory Tests Test 04/10/17 05:10 White Blood Count 5.2 K/UL (4.8-10.8) Red Blood Count 4.29 M/UL (4.20-5.40) Hemoglobin 13.8 G/DL (12.0-16.0) Hematocrit 40.9 % (37.0-47.0) Mean Corpuscular Volume 95 FL (80-99) Mean Corpuscular Hemoglobin 32.2 PG (27.0-31.0) H Mean Corpuscular Hemoglobin Concent 33.8 G/DL (32.0-36.0) Red Cell Distribution Width 11.2 % (11.6-14.8) L Platelet Count 326 K/UL (150-450) Mean Platelet Volume 5.7 FL (6.5-10.1) L Neutrophils (%) (Auto) 62.5 % (45.0-75.0) Lymphocytes (%) (Auto) 17.4 % (20.0-45.0) L Monocytes (%) (Auto) 15.6 % (1.0-10.0) H Eosinophils (%) (Auto) 3.3 % (0.0-3.0) H Basophils (%) (Auto) 1.3 % (0.0-2.0) Sodium Level 135 MMOL/L (136-145) L Potassium Level 4.7 MMOL/L (3.5-5.1) Chloride Level 101 MMOL/L (98-107) Carbon Dioxide Level 27 MMOL/L (21-32) Anion Gap 7 mmol/L (5-15) Blood Urea Nitrogen 10 mg/dL (7-18) Creatinine 0.6 MG/DL (0.55-1.30) Estimat Glomerular Filtration Rate mL/min (>60) Glucose Level 111 MG/DL (74-106) H Calcium Level 7.8 MG/DL (8.5-10.1) L Intake and Output 04/09/17 04/10/17 19:00 07:00 Intake Total 500 ml Output Total 1500 ml 1600 ml Balance -1000 ml -1600 ml Intake Oral 500 ml Output Urine Total 1500 ml 1600 ml Objective General Appearance: WD/WN, no apparent distress, lethargic EENT: PERRL/EOMI, normal ENT inspection, TMs normal Neck: non-tender, normal alignment, supple, normal inspection Cardiovascular: normal peripheral pulses, normal rate, regular rhythm, no gallop/murmur, no JVD Respiratory/Chest: chest wall non-tender, lungs clear, normal breath sounds, no respiratory distress, no accessory muscle use Abdomen: normal bowel sounds, non tender, soft, no organomegaly, no mass Extremities: normal range of motion, non-tender 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 (3) Chronic low back pain Assessment & Plan: Continue tramadol. (4) UTI (urinary tract infection) Assessment & Plan: Strep agalactiae group B. Cont rocephin and vanco. Await Inf Dis consult. (5) Sepsis Assessment & Plan: Gram pos cocci. Await ID and sens. Start IV vanco (6) Benzodiazepine overdose Assessment & Plan: Temazepam. See psych consult-continue remeron Status: stable Assessment/Plan Discharge to SNF arranged, however patient family now requests Home Health-see vacation planner note. BRIAN DEXTER Apr 10, 2017 12:23
[2017-04-10] MEDS ORDERED: LEXAPRO10 MG ORAL (14:58)
[2017-04-10] MEDS ORDERED: TOPROL XL50 MG ORAL (15:00)
[2017-04-10] MEDS ORDERED: HEPARIN SO5000 UNIT2 SUBQ (15:01)
[2017-04-10] MEDS ORDERED: MIRTAZAPINE15 M3 ORAL (15:01)
[2017-04-10] MEDS ORDERED: PROTONIX40 MG ORAL (15:02)
[2017-04-10] MEDS ORDERED: POTASSIUM CHLO20 ME1 ORAL (15:03)
[2017-04-10] MEDS ORDERED: ULTRAM50 MG ORAL (15:04)
[2017-04-10 16:00] VITALS: BP 119/75
--- NOTE | 2017-04-10 23:06 | Pulmonology Progress Note ---
Assessment/Plan Problems: (1) Benzodiazepine overdose (2) Altered mental status (3) Hypertension (4) Chronic low back pain Assessment/Plan Aspiration precautions Monitor respiration Tight BP control Pain management imrpoving dvt prophylaxis Subjective ROS Limited/Unobtainable: No Constitutional: Reports: fatigue Allergies: Coded Allergies: No Known Allergies (Unverified , 04/04/17) Objective Last 24 Hour Vital Signs Date Time Temp Pulse Resp B/P (MAP) Pulse Ox O2 Delivery O2 Flow Rate FiO2 04/10/17 16:00 97.7 71 18 119/75 97 04/10/17 12:00 97.3 81 20 142/87 96 04/10/17 09:51 91 113/80 04/10/17 09:50 91 113/80 04/10/17 08:47 96.1 91 20 113/80 96 04/10/17 04:17 97.7 04/10/17 04:00 97.9 85 20 150/85 96 04/10/17 00:00 97.6 97 18 142/86 92 Intake and Output 04/09/17 04/10/17 19:00 07:00 Intake Total 500 ml Output Total 1500 ml 1600 ml Balance -1000 ml -1600 ml Intake Oral 500 ml Output Urine Total 1500 ml 1600 ml General Appearance: no acute distress HEENT: normocephalic, atraumatic, anicteric Respiratory/Chest: chest wall non-tender, decreased breath sounds Breasts: no masses Cardiovascular: normal peripheral pulses, normal rate, regular rhythm, no JVD Abdomen: normal bowel sounds, soft, non tender, no organomegaly, non distended Genitourinary: normal external genitalia Extremities: no cyanosis Skin: no rash, no lesions Neurologic/Psychiatric: disoriented, depressed affect Lymphatic: no neck adenopathy Laboratory Tests 04/10/17 05:10: White Blood Count 5.2, Red Blood Count 4.29, Hemoglobin 13.8, Hematocrit 40.9, Mean Corpuscular Volume 95, Mean Corpuscular Hemoglobin 32.2H, Mean Corpuscular Hemoglobin Concent 33.8, Red Cell Distribution Width 11.2L, Platelet Count 326, Mean Platelet Volume 5.7L, Neutrophils (%) (Auto) 62.5, Lymphocytes (%) (Auto) 17.4L, Monocytes (%) (Auto) 15.6H, Eosinophils (%) (Auto) 3.3H, Basophils (%) ( Auto) 1.3, Sodium Level 135L, Potassium Level 4.7, Chloride Level 101, Carbon Dioxide Level 27, Anion Gap 7, Blood Urea Nitrogen 10, Creatinine 0.6, Estimat Glomerular Filtration Rate , Glucose Level 111H, Calcium Level 7.8L Current Medications Medications (Trade) Dose Ordered Sig/Slade Route PRN Reason Start Time Stop Time Status Last Admin Dose Admin Amlodipine Besylate (Norvasc) 5 mg DAILY ORAL 04/09/17 16:45 05/09/17 16:44 04/10/17 09:50 Dextrose (Dextrose 50%) STAT PRN IV Hypoglycemia 04/05/17 12:00 05/05/17 11:59 Escitalopram Oxalate (Lexapro) 10 mg DAILY ORAL 04/08/17 09:00 05/08/17 08:59 04/10/17 09:49 Heparin Sodium (Porcine) (Heparin 5000 units/ml) 5,000 units EVERY 12 HOURS SUBQ 04/05/17 21:00 05/05/17 20:59 04/10/17 09:53 Metoprolol Succinate (Toprol XL) 50 mg DAILY ORAL 04/09/17 16:45 05/09/17 16:44 04/10/17 09:51 Mirtazapine (Remeron) 7.5 mg BEDTIME ORAL 04/07/17 21:00 05/07/17 20:59 04/09/17 22:17 Pantoprazole (Protonix) 40 mg DAILY ORAL 04/06/17 09:00 05/06/17 08:59 04/10/17 09:49 Potassium Chloride (K-Dur) 40 meq TWICE A DAY ORAL 04/08/17 12:30 05/08/17 12:29 04/10/17 09:50 Tramadol HCl (Ultram) 50 mg Q6H PRN ORAL Moderate Pain (Pain Scale 4-6) 04/05/17 23:15 04/12/17 23:14 04/10/17 03:18 ALO ORNELAS Apr 10, 2017 23:06
--- NOTE | 2017-04-11 11:28 | General Progress Note ---
Assessment/Plan Status: stable, progressing Assessment/Plan mdd s/p SA -cont current meds Subjective Date patient seen: Apr 10, 2017 Neurologic/Psychiatric: Reports: anxiety, depressed Allergies: Coded Allergies: No Known Allergies (Unverified , 04/04/17) Subjective the pt is depressed. denied SI or SA. the pt has psychomotor retardation Objective Last 24 Hour Vital Signs Date Time Temp Pulse Resp B/P (MAP) Pulse Ox O2 Delivery O2 Flow Rate FiO2 04/10/17 16:00 97.7 71 18 119/75 97 04/10/17 12:00 97.3 81 20 142/87 96 Intake and Output 04/10/17 04/11/17 19:00 07:00 Intake Total 180 ml Balance 180 ml Intake Oral 180 ml Height (Feet): 5 Height (Inches): 1.00 Weight (Pounds): 125 General Appearance: no apparent distress, alert Neurologic: alert, oriented x 3, responsive, depressed affect Gonsalo Miller M.D. Apr 11, 2017 11:28
--- NOTE | 2017-04-11 12:11 | Discharge Summary ---
Discharge Summary Hospital Course Date of Admission Apr 05, 2017 at 00:34 Date of Discharge Apr 10, 2017 at 16:50 Admitting Diagnosis ALTERED MENTAL STATUS HPI Alf Quintana is a 86 year old female who was admitted on Apr 05, 2017 at 00:34 for Altered Mental Status Hospital Course [id number] Discharge Discharge Disposition Patient was discharged to Home with Home Health(06) Discharge Diagnoses: Monica aBrker NP Apr 11, 2017 12:11
--- NOTE | 2017-04-11 22:45 | Discharge Summary 2 SIG ---
DATE OF ADMISSION: 04/05/2017 DATE OF DISCHARGE: 04/10/2017 CONSULTANTS: 1. Gonsalo Miller M.D. 2. Enrique Steele M.D. 3. Gay Alcantar M.D. 4. Brock Olvera M.D. HOSPITAL COURSE: The patient is an 86-year-old [place] female, who presented with chief complaint of altered mental status. She has history of chronic low back pain and apparently had increasing back pain after lumbar fracture recently where she was admitted to [facility]. She presented to [facility] after taking approximately 20 temazepam tablets for "pain". She was found lethargic by her family. She had an unintentional overdose of temazepam. Evaluation at ED showed no leukocytosis. Urine toxicology was positive for benzodiazepine. EKG was in normal sinus rhythm with right bundle-branch block and premature atrial contractions. Chest x-ray showed no acute cardiopulmonary disease, no consolidation, no effusion, and no pneumothorax. She was admitted for altered mental status due to benzodiazepine overdose. Urinalysis showed 3+ leukocyte esterase and WBC too many to count. She was started empirically on Rocephin. She had psychiatric evaluation done. The patient was diagnosed with major depressive disorder and was given Lexapro 10 mg and Remeron [address] Olvera was consulted. Nursing staff was unable to insert a Hewitt catheter. Hewitt insertion was then performed by Dr. Olvera and was able to pass a 16-Uzbek Hewitt catheter into the bladder, but met resistance in the mid urethra. The patient appeared to have urethral stricture of uncertain etiology. Urethra was then dilated and Hewitt catheter was then inserted. She was followed by Infectious Disease specialist. Blood culture was growing coagulase-negative Staph. She was given IV vancomycin. Bacteremia likely contaminant. Repeat blood culture did not isolate any growth. Vancomycin was discontinued and was continued on ceftriaxone. She was planned for transfer to SNF, however, family requested the patient to be discharged home with home health. FINAL DIAGNOSES: 1. Altered mental status/acute toxic encephalopathy secondary to benzodiazepine overdose. 2. Chronic low back pain. 3. Hypertension. 4. Urinary tract infection. 5. Coagulase-negative bacteremia likely contaminant. 6. Recent lumbar spine fracture. 7. Osteoporosis. 8. Hypertension. 9. Gastroesophageal reflux disease. 10. Major depressive disorder. 11. Urethral stricture. DISPOSITION: The patient was discharged home. Hewitt catheter was removed. The patient was discharged home with home health. DISCHARGE MEDICATION: Refer to medication list. Continue with tramadol with cautious use of tramadol p.r.n. DISCHARGE INSTRUCTIONS: Follow up in a week. Homar Hernandez M.D. I have been assigned to dictate discharge summary on this account and I was not involved in the patient's management. Monica Barker N.P. DR: FANNIE JOB#: [id number] CC: [id number]
--- NOTE | 2017-04-16 00:10 | Cardiology Report ---
APPROVED REPORT EKG Measurement Heart [id number] Sinus rhythm with premature atrial complexes Right bundle branch block Abnormal ECG
== END 2017-04-10 16:50 | disposition home health service (06) | DRG 812 ==
LOC: EDBD 23:22 → EMR 23:58 → 2E 04-05 00:34 → EDBEDREQ 04-05 16:09 → 4E 04-09 23:59
PROC: 0T7D7ZZ Dilation of Urethra, Via Natural or Artificial Opening (ICD-10-PCS; principal; 2017-04-07)
DX: T42.4X1A Poisoning by benzodiazepines, accidental (unintentional), initial encounter (principal); G92 Toxic encephalopathy; N39.0 Urinary tract infection, site not specified; I45.10 Unspecified right bundle-branch block; E83.51 Hypocalcemia; E87.6 Hypokalemia; F32.9 Major depressive disorder, single episode, unspecified; N35.9 Urethral stricture, unspecified; Y92.019 Unspecified place in single-family (private) house as the place of occurrence of the external cause; M81.0 Age-related osteoporosis without current pathological fracture; K21.9 Gastro-esophageal reflux disease without esophagitis; G89.29 Other chronic pain; M54.5 Low back pain; I10 Essential (primary) hypertension; Z60.2 Problems related to living alone; R33.9 Retention of urine, unspecified
CPT/HCPCS: 36415; 71010; 76775; 80048; 80053; 80307; 80329; 81003; 82550; 83605; 83880; 84484; 85007; 85025; 87040; 87081; 87086; 87181; 93005; 99285; J8499